=== PATIENT | male | born 1960 | race Caucasian/White ===

== ENCOUNTER 2017-02-06 11:42 | Emergency (ER) | payer OTHER ==
[2017-02-06 12:32] VITALS: O2SAT 95
[2017-02-06] MEDS ORDERED: TYLENOL EXTRA STRENGTH 500 MG PO STA (13:44)
[2017-02-06] MEDS ORDERED: ZOFRAN ODT 4 MG PO ONE (13:45)
--- NOTE | 2017-02-06 13:45 | ERPHSYRPT ---
- History of Present Illness Time Seen by Provider: 02/06/17 13:38 Source: patient Patient Subjective Stated Complaint: pt slipped on newly cleaned floor and fell hitting face on dresser,pt states no loc, but states "i said i saw stars", pt vomited x4 since, Triage Nursing Assessment: pt has abrsions above right eye, walked in, alert, resp easy, pulils equal and reactive Physician History: The patient is a 56-year-old male with family complaining of slipping on a newly cleaned floor and striking his right eyebrow on a table. He did not lose consciousness but he did sees stars. He vomited 4 times shortly thereafter. The event occurred about 3 hours ago. He has pain above his right eye. He denies neck pain. He is on a blood thinner. His past medical history is significant for coronary artery disease, [place], hypertension, and high cholesterol. Occurred: this morning Reason for Fall: slipped, fell from standing pos Injuries/Pain Location: face Loss of Consciousness: no loss of consciousness, dazed Quality: aching Severity of Pain-Max: moderate Severity of Pain-Current: moderate Modifying Factors: Improves With: nothing Associated Symptoms (Fall): vomiting, vision changes Allergies/Adverse Reactions: No Known Drug Allergies Allergy (Verified 02/06/17 12:32) Home Medications: Aspirin EC 325 mg [Ecotrin 325 MG] 325 mg PO DAILY 09/15/15 [History] Carvedilol 3.125 mg [Coreg 3.125 MG] 3.125 mg PO BID 09/15/15 [History] Lisinopril [Zestril] 5 mg PO DAILY 09/15/15 [History] Simvastatin 10 mg PO DAILY 09/15/15 [History] Ranolazine 500 MG [Ranexa 500 MG] 2 tab PO BID 11/29/15 [History] Albuterol Sulfate [Proair Hfa] 1 unit DAILY 02/06/17 [History] Clopidogrel Bisulfate 75 mg [PLAVIX 75 MG Tablet] 75 mg DAILY 02/06/17 [ History] Fluticasone/Vilanterol [Breo Ellipta 200-25 Mcg INH] 1 ea DAILY 02/06/17 [ History] Tiotropium [place] [Spiriva] 1 cap DAILY 02/06/17 [History] Hx Tetanus, Diphtheria Vaccination/Date Given: Yes Hx Influenza Vaccination/Date Given: No Hx Pneumococcal Vaccination/Date Given: No Immunizations Up to Date: Yes - Review of Systems Constitutional: No Fever, No Chills Eyes: No Symptoms Ears, Nose, & Throat: No Symptoms Respiratory: No Cough, No Dyspnea Cardiac: No Chest Pain, No Edema, No Syncope Abdominal/Gastrointestinal: No Abdominal Pain, No Nausea, No Vomiting, No Diarrhea Genitourinary Symptoms: No Dysuria Musculoskeletal: Fall, Injury, No Back Pain, No Neck Pain Skin: No Rash Neurological: Headache Psychological: No Symptoms Endocrine: No Symptoms Hematologic/Lymphatic: No Symptoms Immunological/Allergic: No Symptoms All Other Systems: Reviewed and Negative - Past Medical History Pertinent Past Medical History: Yes Neurological History: TIA ENT History: No Pertinent History Cardiac History: Coronary Artery Disease, High Cholesterol, Hypertension Respiratory History: COPD Endocrine Medical History: No Pertinent History Musculoskeletal History: No Pertinent History GI Medical History: No Pertinent History History: No Pertinent History Psycho-Social History: No Pertinent History Male Reproductive Disorders: No Pertinent History Other Medical History: cath cmpleted by dr. bill at [facility] - Past Surgical History Past Surgical History: No Neuro Surgical History: No Pertinent History Cardiac: Cardiac Catheterization Respiratory: No Pertinent History Gastrointestinal: No Pertinent History Genitourinary: No Pertinent History Musculoskeletal: No Pertinent History Male Surgical History: No Pertinent History - Social History Smoking Status: Current every day smoker How long have you smoked: 13 Exposure to second hand smoke: Yes Alcohol Use: Socially Drug Use: none Patient Lives Alone: No Significant Family History: no pertinent family hx - Nursing Vital Signs Nursing Vital Signs: Initial Vital Signs Temperature 97.9 F 02/06/17 12:28 Pulse Rate 79 02/06/17 12:28 Respiratory Rate 18 02/06/17 12:28 Blood Pressure 170/86 02/06/17 12:28 O2 Sat by Pulse Oximetry 95 02/06/17 12:28 Pain Scale Pain Intensity 8 - [place] Coma Score Best Eye Response ([place]): (4) open spontaneously Best Verbal Response ([place]): (5) oriented Best Motor Response ([place]): (6) obeys commands [place] Total: 15 - Physical Exam General Appearance: no apparent distress, alert Head Injury: contusions, ecchymosis, tenderness (right eye brow) Eye Exam: PERRL/EOMI ENT Exam: airway nml Neck Exam: normal inspection, No tenderness Respiratory/Chest Exam: normal breath sounds, No chest tenderness, No respiratory distress Cardiovascular Exam: normal heart sounds, regular rate/rhythm Gastrointestinal Exam: soft, No tenderness, No distention, No guarding, No ecchymosis Rectal Exam: not done Back Exam: normal inspection, No vertebral tenderness Extremity Exam: normal inspection, normal range of motion, pelvis stable, No deformities Neurologic Exam: alert, oriented x 3, cooperative, sensation nml, No motor deficits Skin Exam: normal color, warm, dry SpO2 Interpretation: normal SpO2: 95 Oxygen Delivery: Room Air - CT Exams Head CT Interpretation: Negative (per Dr Truong) Maxillofacial Bones CT Interpretation: Negative (per Dr Truong) Ordered Tests: Active Orders 24 hr Category Date Time Status FACIAL BONES WO CONTRAST [CT] Stat Exams 02/06/17 13:43 Completed HEAD WITHOUT CONTRAST [CT] Stat Exams 02/06/17 13:43 Completed Medication Summary Discontinued Medications Generic Name Dose Route Start Last Admin Trade Name Tri PRN Reason Stop Dose Admin Acetaminophen 1,000 mg 02/06/17 13:44 02/06/17 14:11 Tylenol Extra Strength 500 Mg PO 02/06/17 13:45 1,000 mg STAT STA Administration Acetaminophen Confirm 02/06/17 13:56 Tylenol Extra Strength 500 Mg Administered 02/06/17 13:57 Dose 1,000 mg .ROUTE .STK-MED ONE Ondansetron HCl 4 mg 02/06/17 13:45 02/06/17 14:12 Zofran Odt 4 Mg PO 02/06/17 13:46 4 mg STAT ONE Administration Ondansetron HCl Confirm 02/06/17 13:57 Zofran Odt 4 Mg Administered 02/06/17 13:58 Dose 4 mg .ROUTE .STK-MED ONE - Progress Progress: improved Counseled pt/family regarding: rad results - Departure Time of Disposition: 14:59 Departure Disposition: Home Clinical Impression: Facial contusion Condition: Stable Critical Care Time: No Referrals: SAMANTHA GROSSMAN [Primary Care Provider] - Additional Instructions: You have a facial contusion as result of the fall. The head CT and the facial bone CT were negative. You were given Tylenol 1000 mg in the ER. Continue to take Tylenol and ibuprofen as needed. Apply ice to the area as needed. Follow- up as needed. Prescriptions: Ondansetron ODT 4 MG [Zofran Odt 4 mg] 1 tab PO Q6H PRN PRN #10 tab.rapdis PRN Reason: Nausea/Vomiting
[2017-02-06] MEDS ORDERED: TYLENOL EXTRA STRENGTH 500 MG ONE (13:56)
[2017-02-06] MEDS ORDERED: ZOFRAN ODT 4 MG ONE (13:57)
[2017-02-06 14:21] VITALS: BP 170/98; PULSE 66
--- NOTE | 2017-02-06 14:37 | XRAY ---
Indication: Right supraorbital injury following fall. Multiple contiguous axial images obtained through the head without contrast. Comparison: July 30, 2015. Stable normal-appearing brain parenchyma, ventricles, and bony calvarium. Visualized paranasal sinuses and mastoid air cells are pneumatized and clear. Impression: Stable normal CT head without contrast exam. CTDI 49.71
--- NOTE | 2017-02-06 14:42 | XRAY ---
Indication: Right supraorbital injury following fall. Multiple contiguous axial images obtained through the facial bones. Sagittal and coronal reformatted images obtained. Comparison: None. Patient is edentulous. No acute fracture, suspicious bony lesions, or radiopaque foreign body. Orbits including rib, kelley, and floors intact. Paranasal sinuses and nasal passages are clear. Moderate nasal septal deviation to the right. Visualized noncontrasted soft tissues unremarkable. Visualized cervical spine intact. CT head reported separately. Impression: CT facial bones negative for acute fracture. Incidental nasal septal deviation. CTDI 59.47
== END 2017-02-06 15:11 | disposition home or self-care (01) ==
LOC: ED 11:42
DX: S00.83XA Contusion of other part of head, initial encounter (principal); W01.190A Fall on same level from slipping, tripping and stumbling with subsequent striking against furniture, initial encounter; Z79.01 Long term (current) use of anticoagulants; I25.10 Atherosclerotic heart disease of native coronary artery without angina pectoris; I25.2 Old myocardial infarction; I10 Essential (primary) hypertension; E78.00 Pure hypercholesterolemia, unspecified
CPT/HCPCS: 70450; 70486; 99283; 99284; Q0162; A9270-GY

== ENCOUNTER 2017-06-24 19:22 | Inpatient (IN) | payer OTHER ==
[2017-06-24] MEDS ORDERED: ROCEPHIN 1 Gm-D5w 50 ml Bag** 1 G/50 ML IVPB IV STA (19:32)
[2017-06-24] MEDS ORDERED: solu-MEDROL 125 MG IV ONE (19:32)
[2017-06-24] MEDS ORDERED: PROVENTIL 2.5 MG/3 ML NEB IH ONE (19:32)
[2017-06-24] MEDS ORDERED: Zithromax 500 MG/ 250 ML NaCl Premix 500 MG/250 ML IVPB IV STA (19:32)
[2017-06-24] MEDS ORDERED: Sodium Chloride 0.9% 1000 ML 1,000 ML IV STA (19:37)
[2017-06-24] MEDS ORDERED: solu-MEDROL 125 MG ONE (19:45)
[2017-06-24] MEDS ORDERED: Zithromax 500 MG/ 250 ML NaCl Premix 500 MG/250 ML IVPB IV ONE (19:45)
[2017-06-24] MEDS ORDERED: Sodium Chloride 0.9% 1000 ML 1,000 ML ONE (19:45)
[2017-06-24] MEDS ORDERED: ROCEPHIN 1 Gm-D5w 50 ml Bag** 1 G/50 ML IVPB IV ONE (19:45)
--- NOTE | 2017-06-24 19:46 | ERPHSYRPT ---
- History of Present Illness Time Seen by Provider: 06/24/17 19:35 Source: patient Exam Limitations: clinical condition Patient Subjective Stated Complaint: Pt states "I am having a hard time breathing and have been for about 3 weeks, it is just getting worse." Triage Nursing Assessment: Pt alert and oriented X 3, skin pwd. Pt ambulates without difficulty, able to speak in clear full sentences. Pt only speakin in one to two word sentences. PT coughing, tachypnic. Physician History: PATIENT WITH A HISTORY OF COPD COMPLAINS OF INCREASING DYSPNEA, DIFFICULTY BREATHING , FEVER AND PRODUCTIVE COUGH FOR 2 WEEKS. HAS NO RELIEF WITH NEBULIZERS AT HOME. Timing/Duration: week(s) Activities at Onset: activity Severity of Dyspnea-Max: severe Severity of Dyspnea-Current: severe Possible Cause: occasional episodes Modifying Factors: Improves With: coughing, exertion Associated Symptoms: cough, productive cough Allergies/Adverse Reactions: No Known Drug Allergies Allergy (Verified 02/06/17 12:32) Home Medications: Aspirin EC 325 mg [Ecotrin 325 MG] 325 mg PO DAILY 09/15/15 [History] Carvedilol 3.125 mg [Coreg 3.125 MG] 3.125 mg PO BID 09/15/15 [History] Lisinopril [Zestril] 5 mg PO DAILY 09/15/15 [History] Simvastatin 10 mg PO DAILY 09/15/15 [History] Ranolazine 500 MG [Ranexa 500 MG] 2 tab PO BID 11/29/15 [History] Albuterol Sulfate [Proair Hfa] 1 unit DAILY 02/06/17 [History] Clopidogrel Bisulfate 75 mg [PLAVIX 75 MG Tablet] 75 mg PO DAILY 02/06/17 [History] Fluticasone/Vilanterol [Breo Ellipta 200-25 Mcg INH] 1 ea IN DAILY 02/06/17 [ History] Tiotropium [place] [Spiriva] 1 cap DAILY 02/06/17 [History] Isosorbide Mononitrate 20 mg PO DAILY 06/24/17 [History] Hx Tetanus, Diphtheria Vaccination/Date Given: Yes Hx Influenza Vaccination/Date Given: No Hx Pneumococcal Vaccination/Date Given: No Immunizations Up to Date: Yes - Review of Systems Constitutional: No Fever, No Chills Eyes: No Symptoms Ears, Nose, & Throat: No Symptoms Respiratory: Cough, Dyspnea on Exertion (MOSES), No Dyspnea Cardiac: No Symptoms, No Chest Pain, No Edema, No Syncope Abdominal/Gastrointestinal: No Symptoms, No Abdominal Pain, No Nausea, No Vomiting, No Diarrhea Genitourinary Symptoms: No Symptoms, No Dysuria Musculoskeletal: No Symptoms, No Back Pain, No Neck Pain Skin: No Rash Neurological: No Dizziness, No Focal Weakness, No Sensory Changes Psychological: No Symptoms Endocrine: No Symptoms All Other Systems: Reviewed and Negative - Past Medical History Pertinent Past Medical History: Yes Neurological History: TIA ENT History: No Pertinent History Cardiac History: Coronary Artery Disease, High Cholesterol, Hypertension Respiratory History: COPD Endocrine Medical History: No Pertinent History Musculoskeletal History: No Pertinent History GI Medical History: No Pertinent History History: No Pertinent History Psycho-Social History: No Pertinent History Male Reproductive Disorders: No Pertinent History Other Medical History: cath cmpleted by dr. bill at [facility] - Past Surgical History Past Surgical History: No Neuro Surgical History: No Pertinent History Cardiac: Cardiac Catheterization Respiratory: No Pertinent History Gastrointestinal: No Pertinent History Genitourinary: No Pertinent History Musculoskeletal: No Pertinent History Male Surgical History: No Pertinent History - Social History Smoking Status: Current every day smoker How long have you smoked: years Exposure to second hand smoke: Yes Alcohol Use: Socially Drug Use: none Patient Lives Alone: No Significant Family History: no pertinent family hx - Nursing Vital Signs Nursing Vital Signs: Initial Vital Signs Temperature 97.5 F 06/24/17 19:26 Pulse Rate 102 H 06/24/17 19:26 Respiratory Rate 24 06/24/17 19:26 Blood Pressure 179/95 06/24/17 19:26 O2 Sat by Pulse Oximetry 94 L 06/24/17 19:26 Pain Scale Pain Intensity 0 - Physical Exam General Appearance: moderate distress, other (NO AUDIBLE WHEEZES ) Eye Exam: PERRL/EOMI Ears, Nose, Throat Exam: hearing grossly normal Neck Exam: normal inspection, supple Respiratory Exam: respiratory distress, diminished breath sounds, accessory muscle use, prolonged expirations Cardiovascular/Chest Exam: normal heart sounds, regular rate/rhythm Abdominal/Gastrointestinal Exam: soft, normal bowel sounds, No tenderness, No distention, No mass Extremity Exam: non-tender, normal range of motion, normal inspection, no calf tenderness, no pedal edema Peripheral Pulses Exam: carotid (R): 2+, carotid (L): 2+, femoral (R): 2+, femoral (L): 2+, dorsalis-pedis (R): 2+, dorsalis-pedis (L): 2+ Neurologic Exam: alert, oriented x 3, cooperative, back tender paper machine II-XII nml as tested, sensation nml, No motor deficits Skin Exam: normal color, warm, No dry SpO2 Interpretation: normal SpO2: 94 Oxygen Delivery: Room Air - Course EKG Interpreted by Me: RATE, Sinus Rhythm, NORMAL AXIS - Radiology Exams Chest X-ray Interpretation: Interpreted by me (COPD, FLAT DIAPHRAMS, HYPERINFLATION) Ordered Tests: Active Orders 24 hr Category Date Time Status EKG-ER Only STAT Care 06/24/17 19:32 Active IV Insertion STAT Care 06/24/17 19:37 Active Oxygen-ED Only NASAL CANNULA 2 lpm Care 06/24/17 19:32 Active CHEST 1 VIEW (PORTABLE) Stat Exams 06/24/17 19:33 Completed BLOOD CULTURE Stat Lab 06/24/17 19:45 Received CBC W DIFF Stat Lab 06/24/17 19:45 Completed CMP Stat Lab 06/24/17 19:45 Completed D-DIMER QUANTITATION Stat Lab 06/24/17 19:45 Completed Lactic Acid Stat Lab 06/24/17 19:32 Completed MAGNESIUM Stat Lab 06/24/17 19:45 Completed PROTIME WITH INR Stat Lab 06/24/17 19:45 Completed TROPONIN Q3H Lab 06/24/17 20:00 Completed TROPONIN Q3H Lab 06/24/17 22:45 Ordered TROPONIN Q3H Lab 06/25/17 01:45 Ordered TROPONIN Q3H Lab 06/25/17 04:45 Ordered TROPONIN Q3H Lab 06/25/17 07:45 Ordered VENOUS BLOOD GAS Stat Lab 06/24/17 19:32 Completed Respiratory Nebulizer STAT RT 06/24/17 19:35 Completed Medication Summary Discontinued Medications Generic Name Dose Route Start Last Admin Trade Name Freq PRN Reason Stop Dose Admin Albuterol Sulfate 10 mg 06/24/17 19:32 06/24/17 19:58 Proventil 2.5 Mg/3 Ml Neb IH 06/24/17 19:33 10 mg STAT ONE Administration Albuterol Sulfate Confirm 06/24/17 19:50 Proventil Solution 2.5 Mg/0.5 Ml Administered 06/24/17 19:51 Dose 10 mg IH .STK-MED ONE Ceftriaxone Sodium/Dextrose 1 g in 50 mls @ 100 mls/hr 06/24/17 19:32 19:51 Rocephin 1 Gm-D5w 50 Ml Bag IV 06/24/17 20:01 100 mls/hr STAT STA Administration Azithromycin 500 mg in 250 mls @ 250 mls/hr 06/24/17 19:32 06/24/17 20:03 Zithromax 500 Mg/ 250 Ml Nacl Premix IV 06/24/17 20:31 250 mls/hr STAT STA Administration Sodium Chloride 1,000 mls @ 999 mls/hr 06/24/17 19:37 06/24/17 19:51 Sodium Chloride 0.9% 1000 Ml IV 06/24/17 20:37 999 mls/hr .Q1H1M STA Administration Azithromycin Confirm 06/24/17 19:45 Zithromax 500 Mg/ 250 Ml Nacl Premix Administered 06/24/17 19:46 Dose 500 mg in 250 mls @ ud IV .STK-MED ONE Sodium Chloride Confirm 06/24/17 19:45 Sodium Chloride 0.9% 1000 Ml Administered 06/24/17 19:46 Dose 1,000 mls @ ud .ROUTE .STK-MED ONE Ceftriaxone Sodium/Dextrose Confirm 06/24/17 19:45 Rocephin 1 Gm-D5w 50 Ml Bag Administered 06/24/17 19:46 Dose 1 g in 50 mls @ ud IV .STK-MED ONE Methylprednisolone Sodium Succinate 125 mg 06/24/17 19:32 06/24/17 19:51 Solu-Medrol 125 Mg IV 06/24/17 19:33 125 mg STAT ONE Administration Methylprednisolone Sodium Succinate Confirm 06/24/17 19:45 Solu-Medrol 125 Mg Administered 06/24/17 19:46 Dose 125 mg .ROUTE .STK-MED ONE Sodium Chloride Confirm 06/24/17 19:50 Sodium Chloride 3 Ml Ud Nebules Administered 06/24/17 19:51 Dose 9 ml IH .STK-MED ONE Lab/Rad Data: Laboratory Result Diagrams 06/24/17 19:45 06/24/17 19:45 Laboratory Results 06/24/17 06/24/17 06/24/17 Range/Units 20:00 19:45 19:45 WBC (4.0-10.5) K/mm3 RBC (4.1-5.6) M/mm3 Hgb (12.5-18.0) gm/dl Hct (42-50) % MCV (78-100) fl MCH (26-32) pg MCHC (32-36) g/dl RDW (11.5-14.0) % Plt Count (150-450) K/mm3 MPV (6-9.5) fl Gran % (36.0-66.0) % Lymphocytes % (24.0-44.0) % Monocytes % (0.0-12.0) % Eosinophils % (0.00-5.0) % Basophils % (0.0-0.4) % Basophils # (0-0.4) INR 1.42 (0.8-3.0) D-Dimer 461.23 (0-500) ng/mL VBG pH (7.32-7.42) VBG pCO2 at Pat Temp (42-55) mm/Hg VBG pO2 at Pat Temp (25-40) mm/Hg VBG HCO3 (22-28) meq/L VBG O2 Sat ([place]) (95-100) VBG Base Excess (-2.0-2.0) VBG Hemoglobin VBG Carboxyhemoglobin (0.0-6.9) % T HGB POC Potassium (3.5-5.1) Sodium 137 (136-145) mEq/L Potassium 3.7 (3.5-5.1) mEq/L Chloride 99 (98-107) mEq/L Carbon Dioxide 27.3 (21-32) mEq/L Anion Gap 14.2 (5-15) MEQ/L BUN 15 (9-20) mg/dL Creatinine 1.20 (0.55-1.30) mg/dl Estimated GFR > 60 ML/MIN Glucose 115 H (70-110) MG/DL Lactic Acid (0.4-2.0) Calcium 8.8 (8.5-10.1) mg/dL Magnesium 1.7 L (1.8-2.4) mg/dL Total Bilirubin 0.50 (0.2-1.0) mg/dL AST 16 (15-37) U/L ALT 14 (12-78) U/L Alkaline Phosphatase 60 (46-116) U/L Troponin I < 0.017 (0.000-0.056) ng/ml Serum Total Protein 7.7 (6.4-8.2) gm/dL Albumin 3.9 (3.4-5.0) g/dL 06/24/17 06/24/17 Range/Units 19:45 19:32 WBC 10.4 (4.0-10.5) K/mm3 RBC 4.57 (4.1-5.6) M/mm3 Hgb 14.8 (12.5-18.0) gm/dl Hct 44.7 (42-50) % MCV 97.8 (78-100) fl MCH 32.4 H (26-32) pg MCHC 33.1 (32-36) g/dl RDW 13.2 (11.5-14.0) % Plt Count 179 (150-450) K/mm3 MPV 10.0 H (6-9.5) fl Gran % 77.8 H (36.0-66.0) % Lymphocytes % 10.5 L (24.0-44.0) % Monocytes % 11.5 (0.0-12.0) % Eosinophils % 0.1 (0.00-5.0) % Basophils % 0.1 (0.0-0.4) % Basophils # 0.01 (0-0.4) INR (0.8-3.0) D-Dimer (0-500) ng/mL VBG pH 7.35 (7.32-7.42) VBG pCO2 at Pat Temp 51 (42-55) mm/Hg VBG pO2 at Pat Temp 23 L (25-40) mm/Hg VBG HCO3 28.2 H (22-28) meq/L VBG O2 Sat (Bruno) 50.1 L (95-100) VBG Base Excess 1.4 (-2.0-2.0) VBG Hemoglobin 16.6 VBG Carboxyhemoglobin 3.6 (0.0-6.9) % T HGB POC Potassium 3.9 (3.5-5.1) Sodium (136-145) mEq/L Potassium (3.5-5.1) mEq/L Chloride (98-107) mEq/L Carbon Dioxide (21-32) mEq/L Anion Gap (5-15) MEQ/L BUN (9-20) mg/dL Creatinine (0.55-1.30) mg/dl Estimated GFR ML/MIN Glucose (70-110) MG/DL Lactic Acid 1.8 (0.4-2.0) Calcium (8.5-10.1) mg/dL Magnesium (1.8-2.4) mg/dL Total Bilirubin (0.2-1.0) mg/dL AST (15-37) U/L ALT (12-78) U/L Alkaline Phosphatase (46-116) U/L Troponin I (0.000-0.056) ng/ml Serum Total Protein (6.4-8.2) gm/dL Albumin (3.4-5.0) g/dL - Progress Progress: improved (DISCUSSED WITH DR MULLEN AT 2100 FOR ADMIT) Progress Note: 06/24/17 21:34 ADMINISTERED CONTINUOUS NEBULIZER ALBUTEROL 10MG OVER 1 HOUR. IV NORMAL SALINE 500ML/HR, SOLUMEDROL 125MG, ZITHROMAX 500MG AND ROCEPHIN 1GM IVBP Blood Culture(s) Obtained: Yes Discussed with : Vkii - Departure Time of Disposition: 21:40 Departure Disposition: In-patient Admission Clinical Impression: ACUTE EXACERBATION COPD Condition: Stable Critical Care Time: No Referrals: SAMANTHA GROSSMAN [Primary Care Provider] -
[2017-06-24] MEDS ORDERED: Sodium Chloride 3 ML UD NEBULES IH ONE (19:50)
[2017-06-24] MEDS ORDERED: PROVENTIL Solution 2.5 MG/0.5 ML IH ONE (19:50)
[2017-06-24 20:07] LABS: BASOPHIL % 0.1 % (0.0-0.4); Basophil (Absolute #) 0.01 (0-0.4); Eosinophil % 0.1 % (0.00-5.0); Eosinophil (Absolute #) 0.01 (0-0.5); Granulocyte Absolute (ANC) 8.09 (1.4-6.9); Granulocytes % 77.8 % (36.0-66.0); Hematocrit 44.7 % (42-50); Hemoglobin 14.8 gm/dl (12.5-18.0); Lymphocyte (Absolute #) 1.09 (1.0-4.6); Lymphocytes % 10.5 % (24.0-44.0); Mean Cell Volume 97.8 fl (78-100); Mean Corpuscular Hemoglobin 32.4 pg (26-32); Mean Corpuscular Hgb Concent. 33.1 g/dl (32-36); Monocyte (Absolute #) 1.19 (0.0-1.3); Monocytes % 11.5 % (0.0-12.0); Platelet Count 179 K/mm3 (150-450); Red Blood Count 4.57 M/mm3 (4.1-5.6); Red Cell Distribution Width 13.2 % (11.5-14.0); White Blood Count 10.4 K/mm3 (4.0-10.5)
[2017-06-24 20:27] LABS: Lactic Acid 1.8 (0.4-2.0); VBG BASE EXCESS 1.4 (-2.0-2.0); VBG CARBOXYHEMOGLOBIN 3.6 % T HGB (0.0-6.9); VBG HCO3- 28.2 meq/L (22-28); VBG HEMOGLOBIN 16.6; VBG O2 SATURATION 50.1 (95-100); VBG POTASSIUM 3.9 (3.5-5.1); VBG pH 7.35 (7.32-7.42)
[2017-06-24 20:42] LABS: INR 1.42 (0.8-3.0)
--- NOTE | 2017-06-24 20:42 | XRAY ---
Indication: Cough and dyspnea. Comparison: May 23, 2017. Portable chest remains hyperinflated and clear with incidental right apical calcified granuloma. Heart is not enlarged. Bony thorax intact again with mild degenerative changes and old right 10th rib fracture. Impression: Stable COPD. No new/acute findings.
[2017-06-24 20:43] LABS: D-DIMER QUANTITATION 461.23 ng/mL (0-500)
[2017-06-24 20:53] LABS: ALBUMIN 3.9 g/dL (3.4-5.0); ALKALINE PHOSPHATASE 60 U/L (46-116); ANION GAP 14.2 MEQ/L (5-15); BLOOD UREA NITROGEN 15 mg/dL (9-20); CHLORIDE 99 mEq/L (98-107); Calcium 8.8 mg/dL (8.5-10.1); Carbon Dioxide 27.3 mEq/L (21-32); EST GLOMERULAR FILTRATION RATE > 60 ML/MIN; Glucose 115 MG/DL (70-110); MAGNESIUM 1.7 mg/dL (1.8-2.4); Potassium 3.7 mEq/L (3.5-5.1); SGOT/AST 16 U/L (15-37); SGPT/ALT 14 U/L (12-78); SODIUM 137 mEq/L (136-145); Total Protein 7.7 gm/dL (6.4-8.2)
[2017-06-24] MEDS ORDERED: TYLENOL 325 MG PO PRN (21:42)
[2017-06-24] MEDS ORDERED: Xopenex 1.25 MG/0.5 ML UD NEBULE IH PRN (21:43)
[2017-06-24] MEDS ORDERED: Nitrostat 0.4 MG Tablet SL PRN (21:45)
[2017-06-24] MEDS ORDERED: Sodium Chloride 0.9% 1000 ML 1,000 ML IV SCH (21:45)
[2017-06-24] MEDS ORDERED: Zofran 4 MG/2 ML VIAL IV PRN (21:46)
[2017-06-24] MEDS: Ranexa 500 MG PO SCH (23:12)
[2017-06-24] MEDS: Coreg 3.125 MG PO SCH (23:13)
[2017-06-24 23:15] LABS: INFLUENZA A NEGATIVE (NEGATIVE); INFLUENZA B NEGATIVE (NEGATIVE)
[2017-06-24 23:16] LABS: RESPIRATORY SYNCTIAL VIRUS POSITIVE (Negative)
[2017-06-25] MEDS: solu-MEDROL 125 MG IV SCH ×4 (00:11→21:29)
[2017-06-25] MEDS: DUONEB 0.5-3 MG/3 ml Neb IH SCH ×7 (02:32→23:11)
[2017-06-25] MEDS: Spiriva 18 Mcg/Cap Inhaler IH SCH (06:45)
[2017-06-25] MEDS ORDERED: Advair Hfa 115/21 Common canister IH SCH (07:00)
[2017-06-25] MEDS: ADVAIR 250-50 DISKUS 14 DOSE IH SCH ×2 (08:30→20:08)
[2017-06-25] MEDS ORDERED: Imdur 30 MG PO SCH (10:00)
[2017-06-25] MEDS ORDERED: FLUCELVAX QUAD 2017-2018 SYR IM ONE (10:00)
[2017-06-25] MEDS ORDERED: Zestril 5 MG PO SCH (10:00)
[2017-06-25] MEDS: Ecotrin 325 MG PO SCH (10:07)
[2017-06-25] MEDS: Coreg 3.125 MG PO SCH ×2 (10:08→21:30)
[2017-06-25] MEDS: PLAVIX 75 MG Tablet PO SCH (10:08)
[2017-06-25] MEDS: Ranexa 500 MG PO SCH ×2 (10:08→21:29)
[2017-06-25] MEDS ORDERED: Sodium Chloride 0.9% 10 ML FLUSH Syringe IV PRN (11:41)
[2017-06-25] MEDS ORDERED: ZOFRAN ODT 4 MG PO PRN (12:31)
[2017-06-25] MEDS ORDERED: Ventolin Hfa MDI IH PRN (12:31)
[2017-06-25] MEDS: Nicoderm CQ 21 MG TOP SCH (12:33)
[2017-06-25] MEDS ORDERED: PROVENTIL COMMON CANISTER IH PRN (12:33)
[2017-06-25] MEDS: Zocor 10MG PO SCH (15:00)
[2017-06-25] MEDS: Sodium Chloride 0.9% 10 ML FLUSH Syringe IV SCH ×2 (15:00→21:47)
[2017-06-25] MEDS: ROCEPHIN 1 Gm-D5w 50 ml Bag** 1 G/50 ML IVPB IV SCH (20:08)
[2017-06-25] MEDS: Zithromax 500 MG/ 250 ML NaCl Premix 500 MG/250 ML IVPB IV SCH (21:29)
[2017-06-25] MEDS: Zestril 5 MG PO SCH (21:30)
[2017-06-26] MEDS: solu-MEDROL 125 MG IV SCH (05:21)
[2017-06-26 05:36] LABS: Granulocyte Absolute (ANC) 11.19 (1.4-6.9); Hematocrit 41.3 % (42-50); Hemoglobin 13.6 gm/dl (12.5-18.0); Mean Cell Volume 97.6 fl (78-100); Mean Corpuscular Hemoglobin 32.2 pg (26-32); Mean Corpuscular Hgb Concent. 32.9 g/dl (32-36); Mean Platelet Volume 10.4 fl (6-9.5); Platelet Count 172 K/mm3 (150-450); Red Blood Count 4.23 M/mm3 (4.1-5.6); Red Cell Distribution Width 13.1 % (11.5-14.0); White Blood Count 12.1 K/mm3 (4.0-10.5)
[2017-06-26] MEDS: Sodium Chloride 0.9% 10 ML FLUSH Syringe IV SCH ×3 (05:37→21:07)
[2017-06-26] MEDS: DUONEB 0.5-3 MG/3 ml Neb IH SCH ×6 (05:38→23:15)
[2017-06-26] MEDS: Spiriva 18 Mcg/Cap Inhaler IH SCH ×2 (05:40→05:41)
[2017-06-26] MEDS: ADVAIR 250-50 DISKUS 14 DOSE IH SCH ×2 (05:40→19:45)
[2017-06-26 05:57] LABS: ANION GAP 13.6 MEQ/L (5-15); BLOOD UREA NITROGEN 19 mg/dL (9-20); CHLORIDE 106 mEq/L (98-107); Carbon Dioxide 25.4 mEq/L (21-32); Creatinine 1 0.98 mg/dl (0.55-1.30); EST GLOMERULAR FILTRATION RATE > 60 ML/MIN; Glucose 130 MG/DL (70-110); Potassium 3.9 mEq/L (3.5-5.1); SODIUM 141 mEq/L (136-145)
[2017-06-26 06:39] LABS: BAND 2 % (0.0-2.0); Lymphocytes 7 % (24-44); Monocyte 3 % (0.0-12.0); Neutrophils 88 % (36.-66.); Total Cells Counted 100
[2017-06-26 06:40] LABS: Platelet Estimate NORMAL (NORMAL)
--- NOTE | 2017-06-26 08:39 | PCM.NOTE ---
Date and Time: 06/26/17837 Subjective Assessment: a little better with the oxygen eating some now still very short of breath with minimal exertion or talking no chest pian no nausea or vomiting. he does not have home oxygen Objective Exam General Appearance: no apparent distress, alert, thin Neurologic Exam: alert, oriented x 3, cooperative, normal mood/affect, nml cerebellar function, sensation nml, No motor deficits Skin Exam: normal color, warm, dry Eye Exam: PERRL, EOMI, eyes nml inspection Ears, Nose, Throat Exam: normal ENT inspection, pharynx normal, moist mucous membranes Neck Exam: normal inspection, non-tender, supple, full range of motion Respiratory Exam: diminished breath sounds, wheezing Cardiovascular Exam: regular rate/rhythm, normal heart sounds Gastrointestinal/Abdomen Exam: soft, No tenderness, No mass Extremity Exam: normal inspection, normal range of motion Back Exam: normal inspection, normal range of motion, No CVA tenderness, No vertebral tenderness Male Genitalia Exam: deferred Rectal Exam: deferred OBJECTIVE DATA Vital Signs: Vital Signs - 24 hr Temp Pulse Resp BP Pulse Ox 06/26/17 05:42 65 24 92 L 06/26/17 04:00 97.1 F 78 20 169/77 95 06/26/17 00:00 97.6 F 61 22 146/76 95 06/25/17 23:12 65 20 93 L 06/25/17 20:00 97.7 F 65 24 139/70 94 L 06/25/17 16:00 22 06/25/17 15:34 98 F 68 22 126/60 91 L 06/25/17 15:00 69 22 91 L 06/25/17 12:00 20 06/25/17 11:16 98 F 84 20 125/59 92 L 06/25/17 11:00 65 20 91 L Oxygen-Last 24 hours O2 Percentage 2 Liters = 28% O2 Percentage 2 Liters = 28% O2 Percentage 2 Liters = 28% Oxygen Flowrate (L/min)-RT 2 Pain Assessment - Last Documented Pain Intensity 0 Pain Scale Used 0-10 Pain Scale Intake and Output: Intake & Output 06/23/17 06/24/1718 06/26/17 11:59 11:59 11:59 11:59 Intake Total 754 1500 Output Total 650 Balance 754 850 Weight 59.9 kg Lab Results: Lab Results-Last 24 Hours 06/25/17 06/26/17 06/26/17 Range/Units 07:45 05:15 05:15 WBC 12.1 H (4.0-10.5) K/mm3 RBC 4.23 (4.1-5.6) M/mm3 Hgb 13.6 (12.5-18.0) gm/dl Hct 41.3 L (42-50) % MCV 97.6 (78-100) fl MCH 32.2 H (26-32) pg MCHC 32.9 (32-36) g/dl RDW 13.1 (11.5-14.0) % Plt Count 172 (150-450) K/mm3 MPV 10.4 H (6-9.5) fl Segmented Neutrophils 88 H (36.-66.) % Band Neutrophils 2 (0.0-2.0) % Lymphocytes (Manual) 7 L (24-44) % Monocytes (Manual) 3 (0.0-12.0) % Differential Comment NORMAL Platelet Estimate NORMAL (NORMAL) Sodium 141 (136-145) mEq/L Potassium 3.9 (3.5-5.1) mEq/L Chloride 106 (98-107) mEq/L Carbon Dioxide 25.4 (21-32) mEq/L Anion Gap 13.6 (5-15) MEQ/L BUN 19 (9-20) mg/dL Creatinine 0.98 (0.55-1.30) mg/dl Estimated GFR > 60 ML/MIN Glucose 130 H (70-110) MG/DL Calcium 9.0 (8.5-10.1) mg/dL Troponin I < 0.017 (0.000-0.056) ng/ml Assessment/Plan (1) COPD exacerbation Current Visit: Yes Status: Acute Assessment & Plan: still significant symptoms will wean the iv steroids a little continue the antibiotics wean O2 as tolerated if tolerating off O2 consider overnight pulse ox study Code(s): J44.1 - CHRONIC OBSTRUCTIVE PULMONARY DISEASE W (ACUTE) EXACERBATION (2) RSV infection Current Visit: Yes Status: Acute Code(s): B97.4 - RESPIRATORY SYNCYTIAL VIRUS CAUSING DISEASES CLASSD ELSWHR (3) Coronary artery disease Current Visit: Yes Status: Acute Code(s): I25.10 - ATHSCL HEART DISEASE OF [place] CORONARY ARTERY W/O ANG PCTRS
[2017-06-26] MEDS: Ecotrin 325 MG PO SCH (09:09)
[2017-06-26] MEDS: monoKET 20 MG PO SCH (09:09)
[2017-06-26] MEDS: Coreg 3.125 MG PO SCH ×2 (09:09→21:07)
[2017-06-26] MEDS: PLAVIX 75 MG Tablet PO SCH (09:09)
[2017-06-26] MEDS: Ranexa 500 MG PO SCH ×2 (09:09→21:07)
[2017-06-26] MEDS: Zestril 5 MG PO SCH ×2 (09:09→21:07)
[2017-06-26] MEDS: Zocor 10MG PO SCH (09:09)
[2017-06-26] MEDS: Nicoderm CQ 21 MG TOP SCH (09:10)
--- NOTE | 2017-06-26 13:05 | HP ---
CHIEF COMPLAINT: Shortness of breath. HISTORY OF PRESENT ILLNESS: The patient is a 57 year-old white male patient with history of chronic obstructive pulmonary disease. He apparently had recent upper respiratory tract infection which was treated with p.o. steroids and antibiotics. He had been seen by Dr. Tse a couple weeks ago. The patient reports that he was in contact with a grandson in school that had also had upper respiratory infection recently. Upon evaluation in the emergency room the patient was found to be positive for respiratory syncytial virus infection. The patient apparently does use nebulizer machine at home. He apparently also has history of coronary artery disease. He is a known smoker. He previously had a transient ischemic attack. PAST MEDICAL/SURGICAL HISTORY: HOME MEDICATIONS: Aspirin, carvedilol, lisinopril, Simvastatin, Lunesta, Albuterol, Plavix, Breo Ellipta and Spiriva. ALLERGIES: NKDA. PHYSICAL EXAMINATION: Revealed a thin, white male patient who appears to be mildly dyspneic. He is wearing oxygen per nasal cannula. HEENT: Normocephalic, atraumatic. Pupils equal round reactive to light. Extraocular movements intact. Oropharynx is pink and moist. NECK: Supple without lymphadenopathy, thyromegaly or JVD. CHEST: Slight wheeze in the posterior upper area and somewhat diminished lung air movement bilaterally. HEART: Regular rate and rhythm without significant murmurs, rubs or gallops. ABDOMEN: Soft, nontender, nondistended without hepatosplenomegaly or masses. EXTREMITIES: Without clubbing, cyanosis or edema. NEUROLOGIC: The patient is alert and oriented x3. LAB DATA AND TESTS: Chest x-ray revealed stable chronic obstructive pulmonary disease with no acute findings. His EKG showed mild sinus bradycardia on telemetry on his 12 lead he is in sinus rhythm with rate of 99 with normal axis, normal R-wave progression across the precordial leads and no acute changes. His troponin was measured at less than 0.017 on four different occasions. His white blood cell count was 10,400, hemoglobin 14.8, PLT 179,000. International normalized ratio 1.42. His sugar is 115, BUN 15, creatinine 1.02. Electrolytes and liver enzymes were normal. Venous blood gas 7.35, pCO2 51. ASSESSMENT: Acute exacerbation of chronic obstructive pulmonary disease. The patient has been admitted for IV steroids, nebulizer treatments, oxygen and empiric IV antibiotic treatments. He will be continued on his usual home medications and monitored for his potential for coronary artery disease complications.
[2017-06-26] MEDS: solu-MEDROL 40 MG IV SCH ×2 (15:08→21:07)
[2017-06-26] MEDS: ROCEPHIN 1 Gm-D5w 50 ml Bag** 1 G/50 ML IVPB IV SCH (20:26)
[2017-06-26] MEDS: Zithromax 500 MG/ 250 ML NaCl Premix 500 MG/250 ML IVPB IV SCH (21:06)
[2017-06-27] MEDS: DUONEB 0.5-3 MG/3 ml Neb IH SCH ×6 (03:36→23:14)
[2017-06-27] MEDS: solu-MEDROL 40 MG IV SCH (05:34)
[2017-06-27] MEDS: Sodium Chloride 0.9% 10 ML FLUSH Syringe IV SCH ×3 (05:34→22:04)
[2017-06-27] MEDS: ADVAIR 250-50 DISKUS 14 DOSE IH SCH ×2 (06:46→19:20)
[2017-06-27] MEDS: Spiriva 18 Mcg/Cap Inhaler IH SCH (06:46)
--- NOTE | 2017-06-27 07:32 | PCM.NOTE ---
Date and Time: 06/27/17730 Subjective Assessment: still very sob with any exertion unable to get up to restroom without oxygen. he has decreased appetite with no vomiting or diarrhea. Objective Exam General Appearance: no apparent distress Neurologic Exam: alert, oriented x 3, cooperative Skin Exam: warm, dry Ears, Nose, Throat Exam: moist mucous membranes Neck Exam: non-tender, supple Respiratory Exam: prolonged expirations, rhonchi, wheezing, other (poor airmovement) Cardiovascular Exam: normal heart sounds, No murmur Gastrointestinal/Abdomen Exam: normal bowel sounds, No tenderness, No distention , No mass Extremity Exam: normal inspection, No pedal edema OBJECTIVE DATA Vital Signs: Vital Signs - 24 hr Temp Pulse Resp BP Pulse Ox 06/27/17 07:24 98 F 83 20 155/71 96 06/27/17 06:53 71 20 96 06/27/17 04:00 97.7 F 68 20 171/82 96 06/27/17 03:37 68 20 96 06/27/17 00:00 97.6 F 64 20 160/78 96 06/26/17 23:16 76 20 96 06/26/17 20:00 97.5 F 80 26 H 170/77 93 L 06/26/17 19:45 72 20 96 06/26/17 16:00 97.9 F 70 20 160/97 95 06/26/17 15:24 60 20 95 06/26/17 12:18 106 H 24 92 L 06/26/17 12:00 97.8 F 68 20 126/67 93 L 06/26/17 08:00 97.6 F 24 145/68 91 L Oxygen-Last 24 hours O2 Percentage 2 Liters = 28% O2 Percentage 2 Liters = 28% O2 Percentage 2 Liters = 28% Oxygen Flowrate (L/min)-RT 2 Oxygen Flowrate (L/min)-RT 2 Oxygen Flowrate (L/min)-RT 2 Pain Assessment - Last Documented Pain Intensity 0 Pain Scale Used 0-10 Pain Scale Intake and Output: Intake & Output 06/24/17 06/25/17 06/26/17 06/27/17 11:59 11:59 11:59 11:59 Intake Total 754 1500 1200 Output Total 650 Balance 742 739 9455 Weight 59.9 kg 60 kg Assessment/Plan (1) COPD exacerbation Current Visit: Yes Status: Acute Assessment & Plan: still requirring O2 for even minimal exertion will wean steroids to po prednison continue antibiotics try to see if he qualifies for home o2 today if not check overnight pulse ox he is currently still very weak and sob hopeful for improvement and home tomorrow Code(s): J44.1 - CHRONIC OBSTRUCTIVE PULMONARY DISEASE W (ACUTE) EXACERBATION (2) RSV infection Current Visit: Yes Status: Acute Code(s): B97.4 - RESPIRATORY SYNCYTIAL VIRUS CAUSING DISEASES CLASSD ELSWHR (3) Coronary artery disease Current Visit: Yes Status: Acute Code(s): I25.10 - ATHSCL HEART DISEASE OF [place] CORONARY ARTERY W/O ANG PCTRS
[2017-06-27] MEDS ORDERED: DELTASONE 20 MG PO SCH (10:00)
[2017-06-27] MEDS: monoKET 20 MG PO SCH (10:31)
[2017-06-27] MEDS: Zestril 10 MG PO SCH ×2 (10:32→22:03)
[2017-06-27] MEDS: Ranexa 500 MG PO SCH ×2 (10:32→22:03)
[2017-06-27] MEDS: Ecotrin 325 MG PO SCH (10:32)
[2017-06-27] MEDS: PLAVIX 75 MG Tablet PO SCH (10:32)
[2017-06-27] MEDS: Coreg 6.25 MG PO SCH ×2 (10:32→22:04)
[2017-06-27] MEDS: Zocor 10MG PO SCH (10:33)
[2017-06-27] MEDS: Nicoderm CQ 21 MG TOP SCH (10:33)
[2017-06-27] MEDS: ROCEPHIN 1 Gm-D5w 50 ml Bag** 1 G/50 ML IVPB IV SCH (20:22)
[2017-06-27] MEDS: Zithromax 500 MG/ 250 ML NaCl Premix 500 MG/250 ML IVPB IV SCH (20:58)
[2017-06-28] MEDS: DUONEB 0.5-3 MG/3 ml Neb IH SCH ×2 (03:17→07:15)
[2017-06-28 07:07] VITALS: BP 188/95; O2SAT 96
[2017-06-28] MEDS: ADVAIR 250-50 DISKUS 14 DOSE IH SCH (07:15)
[2017-06-28] MEDS: Spiriva 18 Mcg/Cap Inhaler IH SCH (07:15)
[2017-06-28 07:22] VITALS: PULSE 58
--- NOTE | 2017-06-28 07:50 | PCM.DS ---
Discharge Summary Date of Admission: 06/24/17 22:18 Admitting Physician: SAMANTHA GROSSMAN Primary Care Provider: SAMANTHA GROSSMAN Allergies Allergies No Known Drug Allergies Allergy (Verified 02/06/17 12:32) Hospital Summary - Vitals & Intake/Output Vital Signs: Vital Signs Temperature 98.5 F 06/28/17 07:07 Pulse Rate 58 L 06/28/17 07:16 Respiratory Rate 20 06/28/17 07:16 Blood Pressure 188/95 06/28/17 07:07 O2 Sat by Pulse Oximetry 96 06/28/17 07:16 Oxygen-Last Documented O2 Percentage 2 Liters = 28% Intake & Output: Intake & Output 06/25/17 06/26/17 06/27/17 06/28/17 11:59 11:59 11:59 11:59 Intake Total 754 1500 1200 1660 Output Total 650 Balance 795 225 5252 1660 Weight 59.9 kg 60 kg 58 kg - Lab Result Diagrams: 06/26/17 05:15 06/26/17 05:15 - Procedures and Test Procedures and Tests throughout Hospitalization: Therapy Orders & Screens 06/24/17 21:38 Oxygen NASAL CANNULA 2 lpm Comment: Diagnosis: Shortness of Breath Respiratory Therapy Consult ROUTINE Comment: Reason For Exam: Diagnosis: Shortness of Breath 06/25/17 03:00 neb [Respiratory Nebulizer] Q4H Comment: DUO Q4 Diagnosis: EXACERBATION COPD 06/25/17 07:00 Respiratory MDI BID Comment: CHINEDU 115/21 Diagnosis: EXACERBATION COPD Respiratory MDI UD Comment: LISS ORELLANA Diagnosis: EXACERBATION COPD 06/27/17 07:31 Qualify for Home Oxygen ROUTINE Comment: Diagnosis: EXACERBATION COPD Final Diagnosis/Problem List - Final Discharge Diagnosis/Problem (1) COPD exacerbation Current Visit: Yes Status: Acute (2) RSV infection Current Visit: Yes Status: Acute (3) Coronary artery disease Current Visit: Yes Status: Acute - Discharge Discharge Date: 06/28/17 Disposition: Home, Self-Care Condition: Stable Prescriptions: New Prednisone 20 mg [Deltasone 20 mg] 60 mg PO DAILY #14 tablet Lisinopril 10 mg [Zestril 10 MG] 10 mg PO BID #60 tablet Continue Carvedilol 3.125 mg [Coreg 3.125 MG] 3.125 mg PO BID Simvastatin 10 mg PO DAILY Aspirin EC 325 mg [Ecotrin 325 MG] 325 mg PO DAILY Nitroglycerin 0.4 mg Tablet [Nitrostat 0.4 MG Tablet] 0.4 mg SL UD #0 bottle Ranolazine 500 MG [Ranexa 500 MG] 2 tab PO BID Tiotropium [place] [Spiriva] 1 cap DAILY Clopidogrel Bisulfate 75 mg [PLAVIX 75 MG Tablet] 75 mg PO DAILY Albuterol Sulfate [Proair Hfa] 1 unit DAILY PRN PRN Reason: Shortness Of Breath/Wheezing Fluticasone/Vilanterol [Breo Ellipta 200-25 Mcg INH] 1 ea IN HS Ondansetron ODT 4 MG [Zofran Odt 4 mg] 1 tab PO Q6H PRN PRN #10 tab.rapdis PRN Reason: Nausea/Vomiting Isosorbide Mononitrate 20 mg PO DAILY Discontinued Lisinopril [Zestril] 5 mg PO BID Follow up with: SAMANTHA GROSSMAN [Primary Care Provider] - MINNA IBANEZ [ACTIVE STAFF] - 1 Week Forms: Work/School Release Form
== END 2017-06-28 09:20 | disposition home or self-care (01) | DRG 192 ==
LOC: ED 19:22 → MED SURG 22:18
PROVIDERS: ADMIT Family Medicine; ATTEND Family Medicine
DX: J44.1 Chronic obstructive pulmonary disease with (acute) exacerbation (principal); B97.4 Respiratory syncytial virus as the cause of diseases classified elsewhere; I25.10 Atherosclerotic heart disease of native coronary artery without angina pectoris; R00.1 Bradycardia, unspecified; Z72.0 Tobacco use; Z86.73 Personal history of transient ischemic attack (TIA), and cerebral infarction without residual deficits; Z79.899 Other long term (current) drug therapy
CPT/HCPCS: 36000; 36415; 71045; 80048; 80053; 82805; 83605; 83735; 84484; 85025; 85379; 85610; 87040; 87631; 93005; 94150; 94640; 94760; 94762; 96360; 96361; 96374; 99285; G0008; J0456; J0696; J2920; J2930; 90682; A9270-GY

== ENCOUNTER 2019-04-15 07:48 | Observation (INO) | payer MEDICARE, OTHER ==
[2019-04-15] MEDS ORDERED: Sodium Chloride 0.9% 1000 ML 1,000 ML IV STA (08:06)
[2019-04-15] MEDS ORDERED: solu-MEDROL 125 MG IV ONE (08:06)
[2019-04-15] MEDS ORDERED: ROCEPHIN 1 Gm-D5w 50 ml Bag** 1 G/50 ML IVPB IV STA (08:06)
[2019-04-15] MEDS ORDERED: DUONEB 0.5-3 MG/3 ml Neb IH ONE ×2 (08:06→08:38)
[2019-04-15] MEDS ORDERED: ROCEPHIN 1 Gm-D5w 50 ml Bag** 1 G/50 ML IVPB IV ONE (08:16)
[2019-04-15] MEDS ORDERED: solu-MEDROL 125 MG ONE (08:16)
[2019-04-15] MEDS ORDERED: Sodium Chloride 0.9% 1000 ML 1,000 ML ONE (08:16)
[2019-04-15 08:45] LABS: Hematocrit 43.9 % (42-50); Hemoglobin 14.6 gm/dl (12.5-18.0); Mean Cell Volume 99.8 fl (78-100); Mean Corpuscular Hemoglobin 33.2 pg (26-32); Mean Corpuscular Hgb Concent. 33.3 g/dl (32-36); Mean Platelet Volume 10.2 fl (6-9.5); Platelet Count 184 K/mm3 (150-450); Red Cell Distribution Width 12.4 % (11.5-14.0); White Blood Count 8.9 K/mm3 (4.0-10.5)
[2019-04-15 08:50] LABS: INR 1.33 (0.8-3.0); PROTIME 15.1 SECONDS (8.83-12.87)
[2019-04-15 08:52] LABS: PTT 31.6 SECONDS (24.1-36.1)
[2019-04-15 09:03] LABS: ALBUMIN 4.3 g/dL (3.5-5.0); ALKALINE PHOSPHATASE 60 U/L (38-126); ANION GAP 14.5 MEQ/L (5-15); BLOOD UREA NITROGEN 17 mg/dL (9-20); CHLORIDE 102 mmol/L (98-107); Calcium 9.3 mg/dL (8.4-10.2); Carbon Dioxide 27 mmol/L (22-30); Creatinine 1 0.75 mg/dL (0.66-1.25); Eosinophil 1 % (0.00-3.0); Glucose 96 mg/dL (74-106); Lymphocytes 12 % (24-44); MAGNESIUM 1.8 mg/dL (1.6-2.3); Monocyte 8 % (0.0-12.0); NT PRO BNP 275 pg/mL (0-900); Neutrophils 79 % (36.-66.); Platelet Estimate NORMAL (NORMAL); Potassium 4.3 mmol/L (3.5-5.1); SGOT/AST 29 U/L (17-59); SGPT/ALT 22 U/L (0-50); SODIUM 140 mmol/L (137-145); Total Cells Counted 100
[2019-04-15 09:16] LABS: INFLUENZA A NEGATIVE (NEGATIVE); INFLUENZA B NEGATIVE (NEGATIVE); RESPIRATORY SYNCTIAL VIRUS NEGATIVE (Negative)
--- NOTE | 2019-04-15 09:24 | XRAY ---
Indication: Short of breath, cough, and vomiting. Comparison: June 24, 2017. Portable chest again demonstrates COPD and incidental calcified granulomas. No focal infiltrate, consolidation, or large effusion. Heart is not enlarged. Bony thorax intact again with mild degenerative changes. Impression: Nonacute chest with chronic features.
--- NOTE | 2019-04-15 10:09 | XRAY ---
Indication: Fever, short of breath, and elevated d-dimer. Multiple contiguous axial images obtained through the chest using 80 cc Isovue 370 contrast and PE protocol. Comparison: None There is good opacification of the pulmonary arteries to include the lobar and segmental branches. No filling defect or pulmonary embolus. Heart is not enlarged. Aorta is minimally arteriosclerotic without aneurysm/dissection. 2.5 x 2.4 similar right suprahilar prominent lymph node. Lungs demonstrate moderate pulmonary emphysema and bilateral upper lobe discoid fibrosis/scarring. Right upper lobe demonstrates a 1 x 2 cm lateral and 1.0 x 1.7 cm medial noncalcified masslike opacities contiguous with reported fibrosis/scarring. Minimal [id number]-like opacities in both lower lobes right greater than left favoring pneumonitis. No effusion. Bony thorax demonstrates minimal degenerative changes throughout the spine. Limited upper abdomen demonstrates multiple small/tiny hepatic and renal cysts and left adrenal gland adenoma unchanged with respect to CT abdomen/pelvis October 30, 2014. Impression: 1. Negative pulmonary embolus. Diffuse pulmonary emphysema. 2. Minimal bilateral lower lobe [id number]-like opacities favoring pneumonitis. 3. Right upper lobe masslike opacities possibly focal fibrosis/scarring given continuity with adjacent discoid fibrosis/scarring. Pulmonary masses not completely excluded. Comparison studies would be of benefit if performed elsewhere. Alternatively PET/CT may yield further information. 4. Indeterminate right suprahilar lymphadenopathy. 5. Stable hepatic/renal cysts and left adrenal adenoma. CTDI 11.84
--- NOTE | 2019-04-15 10:53 | ERPHSYRPT ---
- History of Present Illness Time Seen by Provider: 04/15/19 09:20 Source: patient, family Exam Limitations: no limitations Patient Subjective Stated Complaint: SOB Triage Nursing Assessment: Patient ambulated into ED and transferred self to bed. Patient A+O X3. Patient's skin pink, warm and dry. Patient complains of sob , cough and fever for 7 days. Patient states it's hard for him to take a deep breath. Accessory muscle use noted. Patient's lungs diminshed throughout. Patient denies pain or discomfort. Physician History: PATIENT IS A LONG-STANDING copd PATIENT WHO USES NEBULIZERS AT HOME he has had increasing shortness of breath for one week he started with shortness of breath developed fever chills and sweats. He's been quite tight in the chest he has been hospitalized here in the past for COPD exacerbations and RSV. He is a former patient of Dr. Guan Timing/Duration: day(s) (7), worse Activities at Onset: none Severity of Dyspnea-Max: severe Severity of Dyspnea-Current: severe Possible Cause: frequent episodes Modifying Factors: Improves With: nothing Associated Symptoms: cough, chest pain/discomfort, wheezing Allergies/Adverse Reactions: No Known Drug Allergies Allergy (Verified 04/15/19 07:58) Home Medications: Aspirin EC 325 mg [Ecotrin 325 MG] 325 mg PO DAILY 09/15/15 [History] Carvedilol 3.125 mg [Coreg 3.125 MG] 3.125 mg PO BID 09/15/15 [History] Ranolazine 500 MG [Ranexa 500 MG] 2 tab PO BID 11/29/15 [History] Albuterol Sulfate [Proair Hfa] 1 unit IH DAILY PRN 02/06/17 [History] Fluticasone/Vilanterol [Breo Ellipta 200-25 Mcg INH] 1 ea IN HS 02/06/17 [ History] Tiotropium [place] [Spiriva] 1 cap IH DAILY 02/06/17 [History] Hx Tetanus, Diphtheria Vaccination/Date Given: Yes Hx Influenza Vaccination/Date Given: No Hx Pneumococcal Vaccination/Date Given: No Immunizations Up to Date: Yes - Review of Systems Constitutional: Fever, Chills, Night Sweats Eyes: No Symptoms Ears, Nose, & Throat: No Symptoms Respiratory: Cough, Dyspnea, Wheezing Cardiac: No Chest Pain, No Edema, No Syncope Abdominal/Gastrointestinal: No Abdominal Pain, No Nausea, No Vomiting, No Diarrhea Genitourinary Symptoms: No Dysuria Musculoskeletal: No Back Pain, No Neck Pain Skin: No Rash Neurological: No Dizziness, No Focal Weakness, No Sensory Changes Psychological: No Symptoms Endocrine: No Symptoms All Other Systems: Reviewed and Negative - Past Medical History Pertinent Past Medical History: Yes Neurological History: TIA ENT History: No Pertinent History Cardiac History: Coronary Artery Disease, High Cholesterol, Hypertension Respiratory History: COPD Endocrine Medical History: No Pertinent History Musculoskeletal History: No Pertinent History GI Medical History: No Pertinent History History: No Pertinent History Psycho-Social History: No Pertinent History Male Reproductive Disorders: No Pertinent History Other Medical History: cath cmpleted by dr. bill at [facility] - Past Surgical History Past Surgical History: Yes Neuro Surgical History: No Pertinent History Cardiac: Cardiac Catheterization Respiratory: No Pertinent History Gastrointestinal: No Pertinent History Genitourinary: No Pertinent History Musculoskeletal: No Pertinent History Male Surgical History: No Pertinent History Other Surgical History: DR HERNANDEZ DID HEART CATH IN 2014 - Social History Smoking Status: Current every day smoker How long have you smoked: years Exposure to second hand smoke: No Alcohol Use: Socially Drug Use: none Patient Lives Alone: No Significant Family History: no pertinent family hx - Nursing Vital Signs Nursing Vital Signs: Initial Vital Signs Temperature 98.2 F 04/15/19 08:01 Pulse Rate 102 H 04/15/19 08:01 Respiratory Rate 18 04/15/19 08:01 Blood Pressure 185/103 04/15/19 08:01 O2 Sat by Pulse Oximetry 94 L 04/15/19 08:01 Pain Scale Pain Intensity 0 - Physical Exam General Appearance: moderate distress, alert Eye Exam: PERRL/EOMI Neck Exam: normal inspection, supple Respiratory Exam: respiratory distress, diminished breath sounds, crackles/rales , rhonchi, wheezing Cardiovascular/Chest Exam: normal heart sounds, regular rate/rhythm Abdominal/Gastrointestinal Exam: soft, No tenderness, No distention, No mass Extremity Exam: non-tender, normal range of motion, normal inspection, no calf tenderness, no pedal edema Peripheral Pulses Exam: carotid (R): 2+, carotid (L): 2+ Neurologic Exam: alert, oriented x 3, cooperative, 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 nml as tested, sensation nml, No motor deficits Skin Exam: normal color, warm, No dry Lymphatic Exam: No adenopathy SpO2 Interpretation: normal SpO2: 91 - Course EKG Interpreted by Me: RATE (64), Sinus Rhythm, NORMAL AXIS, Other (poor R wave progression) - Radiology Exams Chest X-ray Interpretation: Discussed w/ radiologist - CT Exams Chest CT Interpretation: Discussed w/radiologist Ordered Tests: Active Orders 24 hr Category Date Time Status Roll Off Driver STAT Care 04/15/19 08:10 Active EKG-ER Only STAT Care 04/15/19 08:06 Active Pulse Oximetry (ED) STAT Care 04/15/19 08:06 Active CHEST 1 VIEW (PORTABLE) Stat Exams 04/15/19 08:10 Completed CHEST WITH CONTRAST [CT] Stat Exams 04/15/19 09:00 Completed BLOOD CULTURE Stat Lab 04/15/19 08:10 Received CBC W DIFF Stat Lab 04/15/19 08:10 Completed CMP Stat Lab 04/15/19 08:10 Completed D-DIMER QUANTITATION Stat Lab 04/15/19 08:10 Completed Lactic Acid Stat Lab 04/15/19 08:10 Completed MAGNESIUM Stat Lab 04/15/19 08:10 Completed Manual Differential NC Stat Lab 04/15/19 08:10 Completed NT PRO BNP Stat Lab 04/15/19 08:10 Completed PROTIME WITH INR Stat Lab 04/15/19 08:10 Completed PTT Stat Lab 04/15/19 08:10 Completed TROPONIN Q3H Lab 04/15/19 08:15 Completed TROPONIN Q3H Lab 04/15/19 11:15 Ordered TROPONIN Q3H Lab 04/15/19 14:15 Ordered TROPONIN Q3H Lab 04/15/19 17:15 Ordered TROPONIN Q3H Lab 04/15/19 20:15 Ordered UA W/RFX UR CULTURE Stat Lab 04/15/19 08:10 Uncollected Peak Expiratory Flow Rate ONCE RT 04/15/19 08:48 Active Respiratory Therapy Assessment DAILY RT 04/16/19 08:42 Active Medication Summary Discontinued Medications Generic Name Dose Route Start Last Admin Trade Name Freq PRN Reason Stop Dose Admin Albuterol/Ipratropium 3 ml 04/15/19 08:06 04/15/19 08:42 Duoneb 0.5-3 Mg/3 Ml Neb IH 04/15/19 08:07 3 ml STAT ONE Administration Albuterol/Ipratropium Confirm 04/15/19 08:38 Duoneb 0.5-3 Mg/3 Ml Neb Administered 04/15/19 08:39 Dose 3 ml IH .STK-MED ONE Ceftriaxone Sodium/Dextrose 1 g in 50 mls @ 100 mls/hr 04/15/19 08:06 09:45 Rocephin 1 Gm-D5w 50 Ml Bag IV 04/15/19 08:35 Infused STAT STA Infusion Sodium Chloride 1,000 mls @ 999 mls/hr 04/15/19 08:06 04/15/19 09:59 Sodium Chloride 0.9% 1000 Ml IV 04/15/19 09:06 Infused .Q1H1M STA Infusion Sodium Chloride Confirm 04/15/19 08:16 Sodium Chloride 0.9% 1000 Ml Administered 04/15/19 08:17 Dose 1,000 mls @ ud .ROUTE .STK-MED ONE Ceftriaxone Sodium/Dextrose Confirm 04/15/19 08:16 Rocephin 1 Gm-D5w 50 Ml Bag Administered 04/15/19 08:17 Dose 1 g in 50 mls @ ud IV .STK-MED ONE Methylprednisolone Sodium Succinate 125 mg 04/15/19 08:06 04/15/19 08:19 Solu-Medrol 125 Mg IV 04/15/19 08:07 125 mg STAT ONE Administration Methylprednisolone Sodium Succinate Confirm 04/15/19 08:16 Solu-Medrol 125 Mg Administered 04/15/19 08:17 Dose 125 mg .ROUTE .STK-MED ONE Lab/Rad Data: Laboratory Result Diagrams 04/15/19 08:10 04/15/19 08:10 Laboratory Results 04/15/19 04/15/19 04/15/19 Range/Units 08:40 08:15 08:10 WBC (4.0-10.5) K/mm3 RBC (4.1-5.6) M/mm3 Hgb (12.5-18.0) gm/dl Hct (42-50) % MCV (78-100) fl MCH (26-32) pg MCHC (32-36) g/dl RDW (11.5-14.0) % Plt Count (150-450) K/mm3 MPV (6-9.5) fl Segmented Neutrophils (36.-66.) % Lymphocytes (Manual) (24-44) % Monocytes (Manual) (0.0-12.0) % Eosinophils (Manual) (0.00-3.0) % Platelet Estimate (NORMAL) RBC Morphology PT 15.1 H (8.83-12.87) SECONDS INR 1.33 (0.8-3.0) APTT 31.6 (24.1-36.1) SECONDS D-Dimer 725 H* (215-500) ng/mL Sodium (137-145) mmol/L Potassium (3.5-5.1) mmol/L Chloride (98-107) mmol/L Carbon Dioxide (22-30) mmol/L Anion Gap (5-15) MEQ/L BUN (9-20) mg/dL Creatinine (0.66-1.25) mg/dL Estimated GFR ML/MIN Glucose (74-106) mg/dL Lactic Acid (0.4-2.0) Calcium (8.4-10.2) mg/dL Magnesium (1.6-2.3) mg/dL Total Bilirubin (0.2-1.3) mg/dL AST (17-59) U/L ALT (0-50) U/L Alkaline Phosphatase (38-126) U/L Troponin I < 0.012 (0.000-0.034) ng/mL NT-Pro-B Natriuret Pep (0-900) pg/mL Serum Total Protein (6.3-8.2) g/dL Albumin (3.5-5.0) g/dL Influenza Type A Ag NEGATIVE (NEGATIVE) Influenza Type B Ag NEGATIVE (NEGATIVE) RSV (PCR) NEGATIVE (Negative) 04/15/19 04/15/19 04/15/19 Range/Units 08:10 08:10 08:10 WBC 8.9 (4.0-10.5) K/mm3 RBC 4.40 (4.1-5.6) M/mm3 Hgb 14.6 (12.5-18.0) gm/dl Hct 43.9 (42-50) % MCV 99.8 (78-100) fl MCH 33.2 H (26-32) pg MCHC 33.3 (32-36) g/dl RDW 12.4 (11.5-14.0) % Plt Count 184 (150-450) K/mm3 MPV 10.2 H (6-9.5) fl Segmented Neutrophils 79 H (36.-66.) % Lymphocytes (Manual) 12 L (24-44) % Monocytes (Manual) 8 (0.0-12.0) % Eosinophils (Manual) 1 (0.00-3.0) % Platelet Estimate NORMAL (NORMAL) RBC Morphology NORMAL PT (8.83-12.87) SECONDS INR (0.8-3.0) APTT (24.1-36.1) SECONDS D-Dimer (215-500) ng/mL Sodium 140 (137-145) mmol/L Potassium 4.3 (3.5-5.1) mmol/L Chloride 102 (98-107) mmol/L Carbon Dioxide 27 (22-30) mmol/L Anion Gap 14.5 (5-15) MEQ/L BUN 17 (9-20) mg/dL Creatinine 0.75 (0.66-1.25) mg/dL Estimated GFR > 60.0 ML/MIN Glucose 96 (74-106) mg/dL Lactic Acid 1.3 (0.4-2.0) Calcium 9.3 (8.4-10.2) mg/dL Magnesium 1.8 (1.6-2.3) mg/dL Total Bilirubin 0.80 (0.2-1.3) mg/dL AST 29 (17-59) U/L ALT 22 (0-50) U/L Alkaline Phosphatase 60 (38-126) U/L Troponin I (0.000-0.034) ng/mL NT-Pro-B Natriuret Pep 275 (0-900) pg/mL Serum Total Protein 8.0 (6.3-8.2) g/dL Albumin 4.3 (3.5-5.0) g/dL Influenza Type A Ag (NEGATIVE) Influenza Type B Ag (NEGATIVE) RSV (PCR) (Negative) - Progress Progress: improved Air Movement: fair Blood Culture(s) Obtained: Yes Antibiotics given: Yes Discussed with : Mary Will see patient in: hospital (observation) - Departure Departure Disposition: Observation Clinical Impression: COPD exacerbation Condition: Fair Critical Care Time: No Referrals: DOCTOR,NO FAMILY [Primary Care Provider] - Instructions: Chronic Obstructive Pulmonary Disease
[2019-04-15 12:09] LABS: Appearance CLEAR (CLEAR); Bilirubin NEGATIVE (NEGATIVE); Blood NEGATIVE Ery/ul (0-5); Glucose NEGATIVE (NEGATIVE); Ketones TRACE (NEGATIVE); Leukocyte Esterase NEGATIVE (NEGATIVE); Nitrite NEGATIVE (NEGATIVE); Protein,Urine Dip NEGATIVE (Negative); Specific Gravity 1.034 (1.005-1.025); Urobilinogen NEGATIVE mg/dL (0-1)
[2019-04-15 12:52] LABS: Epithelial Cells OCCASIONAL /HPF (FEW); WBC NONE SEEN /HPF (0-5)
[2019-04-15] MEDS ORDERED: Spiriva 18 Mcg/Cap Inhaler IH ONE (13:42)
[2019-04-15] MEDS: PROVENTIL 2.5 MG/3 ML NEB IH SCH ×4 (13:55→23:20)
[2019-04-15] MEDS: Spiriva 18 Mcg/Cap Inhaler IH SCH (13:55)
[2019-04-15] MEDS: Ecotrin 325 MG PO SCH (17:48)
[2019-04-15] MEDS: Advair Hfa 115/21 Common canister IH SCH (18:56)
[2019-04-15] MEDS: Coreg 3.125 MG PO SCH (21:11)
[2019-04-15] MEDS: Ranexa 500 MG PO SCH (21:11)
[2019-04-15] MEDS: Zestril 10 MG PO SCH (21:11)
[2019-04-15] MEDS ORDERED: Ranexa 500 MG PO SCH (22:00)
[2019-04-16] MEDS: PROVENTIL 2.5 MG/3 ML NEB IH SCH ×5 (03:06→19:59)
[2019-04-16 05:17] LABS: Hematocrit 37.8 % (42-50); Hemoglobin 12.8 gm/dl (12.5-18.0); Mean Cell Volume 99.2 fl (78-100); Mean Corpuscular Hemoglobin 33.6 pg (26-32); Mean Corpuscular Hgb Concent. 33.9 g/dl (32-36); Platelet Count 195 K/mm3 (150-450); Red Blood Count 3.81 M/mm3 (4.1-5.6); Red Cell Distribution Width 12.2 % (11.5-14.0); White Blood Count 9.3 K/mm3 (4.0-10.5)
[2019-04-16 05:32] LABS: ALBUMIN 3.4 g/dL (3.5-5.0); ALKALINE PHOSPHATASE 48 U/L (38-126); ANION GAP 12.1 MEQ/L (5-15); BLOOD UREA NITROGEN 19 mg/dL (9-20); CHLORIDE 108 mmol/L (98-107); Calcium 8.6 mg/dL (8.4-10.2); Carbon Dioxide 24 mmol/L (22-30); Creatinine 1 0.66 mg/dL (0.66-1.25); Glucose 115 mg/dL (74-106); Potassium 4.6 mmol/L (3.5-5.1); SGOT/AST 27 U/L (17-59); SGPT/ALT 24 U/L (0-50); SODIUM 140 mmol/L (137-145); Total Protein 6.7 g/dL (6.3-8.2)
[2019-04-16] MEDS: Advair Hfa 115/21 Common canister IH SCH ×2 (07:17→20:00)
[2019-04-16] MEDS: Spiriva 18 Mcg/Cap Inhaler IH SCH ×2 (07:18→20:03)
[2019-04-16] MEDS: ROCEPHIN 1 Gm-D5w 50 ml Bag** 1 G/50 ML IVPB IV SCH (09:19)
[2019-04-16] MEDS: Ranexa 500 MG PO SCH ×2 (09:22→20:59)
[2019-04-16] MEDS: Zestril 10 MG PO SCH ×2 (09:22→21:00)
[2019-04-16] MEDS: DELTASONE 20 MG PO SCH (09:22)
[2019-04-16] MEDS: Ecotrin 325 MG PO SCH (09:22)
[2019-04-16] MEDS: Coreg 3.125 MG PO SCH ×2 (09:23→21:00)
[2019-04-16] MEDS ORDERED: FLUZONE QUAD 2019-2020 SYRINGE IM ONE (10:00)
[2019-04-16] MEDS ORDERED: PROVENTIL 2.5 MG/3 ML NEB IH PRN (21:05)
[2019-04-17 04:41] LABS: Hematocrit 38.1 % (42-50); Hemoglobin 12.8 gm/dl (12.5-18.0); Mean Corpuscular Hemoglobin 33.6 pg (26-32); Mean Corpuscular Hgb Concent. 33.6 g/dl (32-36); Mean Platelet Volume 9.7 fl (6-9.5); Platelet Count 205 K/mm3 (150-450); Red Blood Count 3.81 M/mm3 (4.1-5.6); Red Cell Distribution Width 12.3 % (11.5-14.0); White Blood Count 8.1 K/mm3 (4.0-10.5)
[2019-04-17 04:54] LABS: ANION GAP 10.5 MEQ/L (5-15); BLOOD UREA NITROGEN 18 mg/dL (9-20); CHLORIDE 108 mmol/L (98-107); Calcium 8.4 mg/dL (8.4-10.2); Carbon Dioxide 24 mmol/L (22-30); Creatinine 1 0.69 mg/dL (0.66-1.25); Glucose 95 mg/dL (74-106); Potassium 4.2 mmol/L (3.5-5.1); SODIUM 139 mmol/L (137-145)
[2019-04-17] MEDS: PROVENTIL 2.5 MG/3 ML NEB IH SCH ×3 (05:25→14:18)
[2019-04-17] MEDS: Advair Hfa 115/21 Common canister IH SCH (05:27)
[2019-04-17] MEDS: Spiriva 18 Mcg/Cap Inhaler IH SCH (05:28)
--- NOTE | 2019-04-17 08:40 | XRAY ---
Indication: COPD exacerbation. Comparison: April 15, 2019. Portable chest remains clear again with COPD and a few calcified granulomas. Heart and mediastinal structures within normal limits. No new/acute findings.
[2019-04-17] MEDS: ROCEPHIN 1 Gm-D5w 50 ml Bag** 1 G/50 ML IVPB IV SCH (10:47)
[2019-04-17] MEDS: Ranexa 500 MG PO SCH (10:47)
[2019-04-17] MEDS: Zestril 10 MG PO SCH (10:48)
[2019-04-17] MEDS: Coreg 3.125 MG PO SCH (10:48)
[2019-04-17] MEDS: DELTASONE 20 MG PO SCH (10:48)
[2019-04-17] MEDS: Ecotrin 325 MG PO SCH (10:48)
[2019-04-17 12:12] VITALS: BP 159/73
[2019-04-17 14:20] VITALS: PULSE 55; O2SAT 94
== END 2019-04-17 16:19 | disposition home or self-care (01) ==
LOC: ED 07:48 → MED SURG 11:31
PROVIDERS: ADMIT Family Medicine; ATTEND Family Medicine
DX: J44.1 Chronic obstructive pulmonary disease with (acute) exacerbation (principal); I10 Essential (primary) hypertension; I25.10 Atherosclerotic heart disease of native coronary artery without angina pectoris; E78.00 Pure hypercholesterolemia, unspecified; Z79.899 Other long term (current) drug therapy; R06.02 Shortness of breath
CPT/HCPCS: 36000; 36415; 71045; 71260; 80048; 80053; 81001; 83605; 83735; 83880; 84484; 85025; 85027; 85379; 85610; 85730; 87040; 87631; 93005; 93041; 94150; 94640; 94760; 96360; 96365; 96374; 99285; G0008; G0378; 90686; J0696; J2930; J7609; A9270-GY

== ENCOUNTER 2021-08-15 18:02 | Emergency (ER) | payer MEDICARE ==
[2021-08-15 18:17] VITALS: BP 145/86; PULSE 84; O2SAT 98
--- NOTE | 2021-08-15 18:50 | ERPHSYRPT ---
- History of Present Illness Time Seen by Provider: 08/15/21 18:25 Source: patient Exam Limitations: no limitations Patient Subjective Stated Complaint: C/o high blood pressure 178/108 and had a headache- took 2 lisinopril today but has not been taking other home pills reg ularly. Took cardivol, aspirin as well before came in. States he was stumbling and got light headed after taking medicaions. States he became incontinent. States BP was 105/67 before coming in and no longer has headache. Triage Nursing Assessment: Patient to ED for high/low blood pressure. VS WNL at this time. Alert and oriented x 3. No complaints of headache at this time. Physician History: 61 years old male with a history of CAD, tobacco abuse, COPD, hypertension not taking any medication for quite some time checked his blood pressure this afternoon as he was having mild headache and it was 178/108. Took his lisinopril 10 mg x 2, Coreg and Ranexa almost 2 hours ago and after eating supper he got up and felt dizzy/lightheaded. Rechecked his blood pressure it was 105 systolic. He was going to the bathroom, got dizzy and could not make it. Denies any chest pain palpitations or shortness of breath during the episode. He reports his symptoms improved on the way to the ER and currently asymptomatic. His pressure is in 140s currently. Patient does not want any thing to be done not even EKG and wants to leave. Timing/Duration: today, sudden, improved Severity: moderate Associated Symptoms: headaches, No nausea, No vomiting, No abdominal pain, No shortness of breath, No chest pain, No loss of appetite, No malaise, No syncope, No seizure, No weakness Allergies/Adverse Reactions: No Known Drug Allergies Allergy (Verified 08/15/21 18:16) Home Medications: Aspirin EC 325 mg [Ecotrin 325 MG] 325 mg PO DAILY 09/15/15 [History] Carvedilol 3.125 mg [Coreg 3.125 MG] 3.125 mg PO BID 09/15/15 [History] Ranolazine 500 MG [Ranexa 500 MG] 1,000 mg PO BID 11/29/15 [History] Albuterol Sulfate [Proair Hfa] 1 unit IH DAILY PRN 02/06/17 [History] Fluticasone/Vilanterol [Breo Ellipta 200-25 Mcg INH] 1 ea IN HS PRN 02/06/17 [History] Tiotropium [place] [Spiriva] 1 cap IH DAILY 02/06/17 [History] Hx Tetanus, Diphtheria Vaccination/Date Given: Yes Hx Influenza Vaccination/Date Given: No Hx Pneumococcal Vaccination/Date Given: No Immunizations Up to Date: Yes Travel Risk - International Travel Have you traveled outside of the country in past 3 weeks: No - Coronavirus Screening Are you exhibiting any of the following symptoms?: No - Vaccine Status Have you recieved a Covid-19 vaccination: Yes [employer]: Moderna - Vaccination Dates Date of 2cond Vaccination (if applicable): 02/12/2021 - Review of Systems Constitutional: No Symptoms Eyes: No Symptoms Ears, Nose, & Throat: No Symptoms Respiratory: No Symptoms Cardiac: No Symptoms Abdominal/Gastrointestinal: No Symptoms Genitourinary Symptoms: Urgency Musculoskeletal: No Symptoms Neurological: Dizziness, Headache Psychological: No Symptoms Endocrine: No Symptoms Hematologic/Lymphatic: No Symptoms Immunological/Allergic: No Symptoms - Past Medical History Pertinent Past Medical History: Yes Neurological History: TIA ENT History: No Pertinent History Cardiac History: Angina, Coronary Artery Disease, High Cholesterol, Hypertension, Myocardial Infarction ([place]) Respiratory History: COPD, Emphysema Endocrine Medical History: No Pertinent History Musculoskeletal History: No Pertinent History GI Medical History: No Pertinent History History: No Pertinent History Psycho-Social History: No Pertinent History Male Reproductive Disorders: No Pertinent History Other Medical History: heart cath in 2015 - Past Surgical History Past Surgical History: Yes Neuro Surgical History: No Pertinent History Cardiac: Cardiac Catheterization Respiratory: No Pertinent History Gastrointestinal: No Pertinent History Genitourinary: No Pertinent History Musculoskeletal: No Pertinent History Male Surgical History: No Pertinent History Other Surgical History: DR HERNANDEZ DID HEART CATH IN 2015 - Social History Smoking Status: Current every day smoker How long have you smoked: 40 years Exposure to second hand smoke: No Alcohol Use: Socially Drug Use: none Patient Lives Alone: No Significant Family History: no pertinent family hx - Nursing Vital Signs Nursing Vital Signs: Initial Vital Signs Temperature 98.6 F 08/15/21 18:08 Pulse Rate 84 08/15/21 18:08 Respiratory Rate 34 H 08/15/21 18:08 Blood Pressure 145/86 08/15/21 18:08 O2 Sat by Pulse Oximetry 98 08/15/21 18:08 Pain Scale Pain Intensity 20 - Physical Exam General Appearance: no apparent distress, alert Eye Exam: PERRL/EOMI, eyes nml inspection Ears, Nose, Throat Exam: normal ENT inspection, TMs normal, pharynx normal, moist mucous membranes Neck Exam: normal inspection, non-tender, supple, full range of motion Respiratory Exam: normal breath sounds, lungs clear Cardiovascular Exam: regular rate/rhythm, normal heart sounds Gastrointestinal/Abdomen Exam: soft, normal bowel sounds, No tenderness Back Exam: normal inspection, normal range of motion Extremity Exam: normal inspection, normal range of motion Neurologic Exam: alert, oriented x 3, cooperative, 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 Offered work-up to rule out cardio neurogenic cause of his dizziness but he refused. Patient is not confused and altered at all. Patient states "I am feeling fine and I do not need any thing". Discussed with patient about risk of leaving without full work-up and including but not limited to delaying the diagnosis, stroke, hypertensive emergency, ACS/arrhythmia/stroke including but he still wants to leave. patient signed AMA paper removal walked out of the ER without getting paperwork for discharge. He is advised to continue taking the routine dose recommended by his doctor for hypertension, keep a log and follow-up with primary care. He agrees with it. Counseled pt/family regarding: diagnosis, need for follow-up - Departure Departure Disposition: AMA Clinical Impression: Uncontrolled hypertension, Dizziness Condition: Stable Critical Care Time: No Referrals: DOCTOR,NO FAMILY [Primary Care Provider] - Follow up/PCP as directed MORGAN MULLEN [ACTIVE STAFF] - Follow up/PCP as directed ()
== END 2021-08-15 18:49 | disposition left against medical advice (07) ==
LOC: ED 18:02
DX: I10 Essential (primary) hypertension (principal); R42 Dizziness and giddiness; I25.10 Atherosclerotic heart disease of native coronary artery without angina pectoris; E78.5 Hyperlipidemia, unspecified; J43.9 Emphysema, unspecified; Z72.0 Tobacco use; Z79.899 Other long term (current) drug therapy
CPT/HCPCS: 99283

== ENCOUNTER 2023-03-05 08:35 | Observation (INO) | payer MEDICARE ==
[2023-03-05] MEDS ORDERED: solu-MEDROL 125 MG, Sterile H2O 10 ml 2 ML IV ONE ×2 (08:48)
[2023-03-05] MEDS ORDERED: DUONEB 0.5-3 MG/3 ml Neb IH ONE (08:48)
[2023-03-05] MEDS ORDERED: Sodium Chloride 0.9% 1000 ML 1,000 ML IV STA (08:48)
[2023-03-05] MEDS ORDERED: ROCEPHIN 1 Gm-D5w 50 ml Bag** 1 G/50 ML IVPB IV STA (08:48)
[2023-03-05] MEDS ORDERED: Zithromax 500 MG/ 250 ML NaCl Premix 500 MG/250 ML IVPB IV STA (08:48)
--- NOTE | 2023-03-05 09:01 | ERPHSYRPT ---
- History of Present Illness Time Seen by Provider: 03/05/23 08:55 Source: patient, family Exam Limitations: no limitations Physician History: Patient is a 62-year-old white male with longstanding COPD who presents with a complaint of cough and shortness of breath for 2 days. His temperature has not been checked at home but he has been having chills and sweats and body aches. His cough is nonproductive he has been using increased amounts of albuterol at home from his 's supply. Even though he has hypertension and other health problems she is on no medications and says that he cannot swallow pills.He has been especially short of breath with exertion. Timing/Duration: day(s) (2) Cough Quality/Degree: dry cough Possible Cause: occasional episodes Modifying Factors: Improves With: albuterol inhaler, coughing, exertion Associated Symptoms: chills, cough, muscle aches, shortness of breath, wheezing Allergies/Adverse Reactions: No Known Drug Allergies Allergy (Verified 08/15/21 18:16) Home Medications: No Reportable Medications [No Reported Medications] 03/05/23 [History] Hx Tetanus, Diphtheria Vaccination/Date Given: Yes Hx Influenza Vaccination/Date Given: No Hx Pneumococcal Vaccination/Date Given: No Travel Risk - Vaccine Status Have you recieved a 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-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 - Vaccination Dates Date of 2cond Vaccination (if applicable): 02/12/2021 - Review of Systems Constitutional: Chills, Malaise, No Fever Eyes: No Symptoms Ears, Nose, & Throat: No Symptoms Respiratory: Cough, Dyspnea, Wheezing Cardiac: No Chest Pain, No Edema, No Syncope Abdominal/Gastrointestinal: No Abdominal Pain, No Nausea, No Vomiting, No Diarrhea Genitourinary Symptoms: No Dysuria Musculoskeletal: No Back Pain, No Neck Pain Skin: No Rash Neurological: No Dizziness, No Focal Weakness, No Sensory Changes Psychological: No Symptoms Endocrine: No Symptoms All Other Systems: Reviewed and Negative - Past Medical History Pertinent Past Medical History: Yes Neurological History: TIA ENT History: No Pertinent History Cardiac History: Angina, Coronary Artery Disease, High Cholesterol, Hypertension, Myocardial Infarction ([place]) Respiratory History: COPD, Emphysema Endocrine Medical History: No Pertinent History Musculoskeletal History: No Pertinent History GI Medical History: No Pertinent History History: No Pertinent History Psycho-Social History: No Pertinent History Male Reproductive Disorders: No Pertinent History Other Medical History: heart cath in 2015 - Past Surgical History Past Surgical History: Yes Neuro Surgical History: No Pertinent History Cardiac: Cardiac Catheterization Respiratory: No Pertinent History Gastrointestinal: No Pertinent History Genitourinary: No Pertinent History Musculoskeletal: No Pertinent History Male Surgical History: No Pertinent History Other Surgical History: DR HERNANDEZ DID HEART CATH IN 2015 - Social History Smoking Status: Current every day smoker How long have you smoked: 40 years Exposure to second hand smoke: No Alcohol Use: Socially Drug Use: none Patient Lives Alone: No Significant Family History: no pertinent family hx - Nursing Vital Signs Nursing Vital Signs: Initial Vital Signs Temperature 98.0 F 03/05/23 08:44 Pulse Rate 99 H 03/05/23 08:44 Respiratory Rate 25 H 03/05/23 08:44 Blood Pressure 203/130 03/05/23 08:44 O2 Sat by Pulse Oximetry 93 L 03/05/23 08:44 Pain Scale Pain Intensity 0 - Physical Exam General Appearance: no apparent distress, mild distress, alert Eye Exam: PERRL/EOMI, eyes nml inspection Ears, Nose, Throat Exam: normal ENT inspection, TMs normal, pharynx normal, moist mucous membranes Neck Exam: normal inspection, non-tender, supple, full range of motion Respiratory Exam: respiratory distress (Mild), airway intact, diminished breath sounds, crackles/rales, wheezing Cardiovascular Exam: regular rate/rhythm, normal heart sounds Gastrointestinal/Abdomen Exam: soft, No tenderness Back Exam: normal inspection, No CVA tenderness, No vertebral tenderness Extremity Exam: normal inspection, normal range of motion Neurologic Exam: alert, oriented x 3, cooperative, normal mood/affect, sensation nml, No motor deficits Skin Exam: normal color, warm, dry, No rash Lymphatic Exam: No adenopathy - Course Nursing assessment & vital signs reviewed: Yes EKG Interpreted by Me: RATE (74), NORMAL AXIS, NORMAL INTERVALS, Non-specific ST Changes, Other (Some slight ST elevation in the anterior lead v3 nad v, no reciprocal changes) Rhythm Strip: Rate (EKG #2 showed sinus rhythm rate of 95 probable left ventricular hypertrophy and prolonged QT interval no mention of ST segment elevation which was questionable and EKG #1.) - Radiology Exams Chest X-ray Interpretation: Reviewed by me, Negative - CT Exams Chest CT Interpretation: Tele-radiologist Report Ordered Tests: Active Orders 24 hr Category Date Time Status EKG-ER Only STAT Care 03/05/23 08:48 Active IV Insertion STAT Care 03/05/23 08:48 Active CHEST 1 VIEW (PORTABLE) Stat Exams 03/05/23 09:06 Taken CHEST WITH CONTRAST [CT] Stat Exams 03/05/23 10:47 Completed BLOOD CULTURE Stat Lab 03/05/23 09:11 Received CBC W DIFF Stat Lab 03/05/23 09:05 Completed CMP Stat Lab 03/05/23 09:05 Completed D-DIMER QUANTITATIVE Stat Lab 03/05/23 09:05 Completed Lactic Acid Stat Lab 03/05/23 09:05 Completed MAGNESIUM Stat Lab 03/05/23 09:05 Completed NT PRO BNPII Stat Lab 03/05/23 09:05 Completed PROTIME WITH INR Stat Lab 03/05/23 09:05 Completed PTT Stat Lab 03/05/23 09:05 Completed TROPONIN Q4H Lab 03/05/23 09:05 Completed TROPONIN Q4H Lab 03/05/23 11:00 Completed TROPONIN Q4H Lab 03/05/23 17:00 Ordered Respiratory Nebulizer STAT RT 03/05/23 09:10 Active Respiratory Therapy Assessment DAILY RT 03/05/23 09:26 Active Medication Summary Generic Name Dose Route Start Last Admin Trade Name Freq PRN Reason Stop Dose Admin Hydralazine HCl 10 mg 03/05/23 08:54 03/05/23 10:43 Hydralazine Hcl 20 Mg/Ml Vial IV 04/04/23 08:53 10 mg [id number] PRN Administration HYPERTENSION Discontinued Medications Generic Name Dose Route Start Last Admin Trade Name Freq PRN Reason Stop Dose Admin Albuterol/Ipratropium 3 ml 03/05/23 08:48 03/05/23 09:06 Ipratropium/Albuterol Sulfate 3 Ml Ampul.Neb IH 03/05/23 08:49 3 ml STAT ONE Administration Methylprednisolone Sodium 0 mg 03/05/23 08:48 03/05/23 09:08 Succinate 125 mg/ Sterile IV 03/05/23 08:49 125 mg Water 2 ml STAT ONE Administration Furosemide 20 mg 03/05/23 10:39 03/05/23 10:43 Furosemide 20 Mg/Vial IV 03/05/23 10:40 20 mg ONCE STA Administration Furosemide Confirm 03/05/23 10:42 Furosemide 20 Mg/Vial Administered 03/05/23 10:43 Dose 20 mg .ROUTE .STK-MED ONE Sodium Chloride 1,000 mls @ 999 mls/hr 03/05/23 08:48 03/05/23 11:24 Sodium Chloride 0.9% 1000 Ml IV 03/05/23 09:48 Infused .Q1H1M STA Infusion Azithromycin 500 mg in 250 mls @ 250 mls/hr 03/05/23 08:48 03/05/23 11:24 Zithromax 500 Mg/ 250 Ml Nacl Premix IV 03/05/23 09:47 Infused STAT STA Infusion Ceftriaxone Sodium/Dextrose 1 g in 50 mls @ 100 mls/hr 03/05/23 08:48 03/05/23 11:24 Rocephin 1 Gm-D5w 50 Ml Bag IV 03/05/23 09:17 Infused STAT STA Infusion Azithromycin Confirm 03/05/23 09:03 Zithromax 500 Mg/ 250 Ml Nacl Premix Administered 03/05/23 09:04 Dose 500 mg in 250 mls @ ud IV .STK-MED ONE Sodium Chloride Confirm 03/05/23 09:03 Sodium Chloride 0.9% 1000 Ml Administered 03/05/23 09:04 Dose 1,000 mls @ ud .ROUTE .STK-MED ONE Ceftriaxone Sodium/Dextrose Confirm 03/05/23 09:03 Rocephin 1 Gm-D5w 50 Ml Bag Administered 03/05/23 09:04 Dose 1 g in 50 mls @ ud IV .STK-MED ONE Methylprednisolone Sodium Succinate Confirm 03/05/23 09:03 Methylprednis Sod Succ 125 Mg/2 Ml Vial Administered 03/05/23 09:04 Dose 125 mg .ROUTE .STK-MED ONE Sterile Water Confirm 03/05/23 09:03 Water For Injection,Sterile 10 Ml Vial Administered 03/05/23 09:04 Dose 10 ml IJ .STK-MED ONE Lab/Rad Data: Laboratory Result Diagrams 03/05/23 09:05 03/05/23 09:05 Laboratory Results 03/05/23 03/05/23 03/05/23 Range/Units 11:00 09:05 09:05 WBC (4.0-10.5) x10^3/uL RBC (4.1-5.6) x10^6/uL Hgb (12.5-18.0) g/dL Hct (42-50) % MCV (78-100) fL MCH (26-32) pg MCHC (32-36) g/dL RDW (11.5-14.0) % Plt Count (150-450) x10^3/uL MPV (7.5-11.0) fL Gran % (36.0-66.0) % Immature Gran % (Auto) (0.00-0.4) % Nucleat RBC Rel Count (0.00-0.1) % Eos # (Auto) (0-0.5) x10^3/uL Immature Gran # (Auto) (0.00-0.03) x10^3u/L Absolute Lymphs (auto) (1.0-4.6) x10^3/uL Absolute Monos (auto) (0.0-1.3) x10^3/uL Absolute Nucleated RBC (0.00-0.01) x10^3u/L Lymphocytes % (24.0-44.0) % Monocytes % (0.0-12.0) % Eosinophils % (0.00-5.0) % Basophils % (0.0-0.4) % Absolute Granulocytes (1.4-6.9) x10^3/uL Basophils # (0-0.4) x10^3/uL PT (9.4-12.5) SECONDS INR (0.8-3.0) APTT (25.1-36.5) SECONDS D-Dimer (0.0-0.50) mg/L Sodium (137-145) mmol/L Potassium (3.5-5.1) mmol/L Chloride (98-107) mmol/L Carbon Dioxide (22-30) mmol/L Anion Gap (5-15) MEQ/L BUN (9-20) mg/dL Creatinine (0.66-1.25) mg/dL Estimated GFR ML/MIN Glucose (74-106) mg/dL Lactic Acid (0.4-2.0) Calcium (8.4-10.2) mg/dL Magnesium (1.6-2.3) mg/dL Total Bilirubin (0.2-1.3) mg/dL AST (17-59) U/L ALT (0-50) U/L Alkaline Phosphatase (38-126) U/L Troponin I 0.032 (0.000-0.034) ng/mL NT-Pro-B Natriuret Pep 3280 (<300) pg/mL Serum Total Protein (6.3-8.2) g/dL Albumin (3.5-5.0) g/dL Influenza Type A Ag NEGATIVE (NEGATIVE) Influenza Type B Ag NEGATIVE (NEGATIVE) RSV (PCR) NEGATIVE (NEGATIVE) SARS-CoV-2 (PCR) NEGATIVE (NEGATIVE) 03/05/23 03/05/23 03/05/23 Range/Units 09:05 09:05 09:05 WBC (4.0-10.5) x10^3/uL RBC (4.1-5.6) x10^6/uL Hgb (12.5-18.0) g/dL Hct (42-50) % MCV (78-100) fL MCH (26-32) pg MCHC (32-36) g/dL RDW (11.5-14.0) % Plt Count (150-450) x10^3/uL MPV (7.5-11.0) fL Gran % (36.0-66.0) % Immature Gran % (Auto) (0.00-0.4) % Nucleat RBC Rel Count (0.00-0.1) % Eos # (Auto) (0-0.5) x10^3/uL Immature Gran # (Auto) (0.00-0.03) x10^3u/L Absolute Lymphs (auto) (1.0-4.6) x10^3/uL Absolute Monos (auto) (0.0-1.3) x10^3/uL Absolute Nucleated RBC (0.00-0.01) x10^3u/L Lymphocytes % (24.0-44.0) % Monocytes % (0.0-12.0) % Eosinophils % (0.00-5.0) % Basophils % (0.0-0.4) % Absolute Granulocytes (1.4-6.9) x10^3/uL Basophils # (0-0.4) x10^3/uL PT 11.9 (9.4-12.5) SECONDS INR 1.10 (0.8-3.0) APTT 29.3 (25.1-36.5) SECONDS D-Dimer 0.54 H (0.0-0.50) mg/L Sodium 131 L (137-145) mmol/L Potassium 4.1 (3.5-5.1) mmol/L Chloride 98 (98-107) mmol/L Carbon Dioxide 28 (22-30) mmol/L Anion Gap 9.3 (5-15) MEQ/L BUN 13 (9-20) mg/dL Creatinine 0.78 (0.66-1.25) mg/dL Estimated GFR > 60.0 ML/MIN Glucose 102 (74-106) mg/dL Lactic Acid (0.4-2.0) Calcium 9.1 (8.4-10.2) mg/dL Magnesium 1.7 (1.6-2.3) mg/dL Total Bilirubin 0.60 (0.2-1.3) mg/dL AST 35 (17-59) U/L ALT 24 (0-50) U/L Alkaline Phosphatase 69 (38-126) U/L Troponin I 0.038 H* (0.000-0.034) ng/mL NT-Pro-B Natriuret Pep (<300) pg/mL Serum Total Protein 7.3 (6.3-8.2) g/dL Albumin 4.4 (3.5-5.0) g/dL Influenza Type A Ag (NEGATIVE) Influenza Type B Ag (NEGATIVE) RSV (PCR) (NEGATIVE) SARS-CoV-2 (PCR) (NEGATIVE) 03/05/23 03/05/23 Range/Units 09:05 09:05 WBC 4.9 (4.0-10.5) x10^3/uL RBC 4.62 (4.1-5.6) x10^6/uL Hgb 15.6 (12.5-18.0) g/dL Hct 45.4 (42-50) % MCV 98.3 (78-100) fL MCH 33.8 H (26-32) pg MCHC 34.4 (32-36) g/dL RDW 11.9 (11.5-14.0) % Plt Count 176 (150-450) x10^3/uL MPV 9.1 (7.5-11.0) fL Gran % 57.4 (36.0-66.0) % Immature Gran % (Auto) 0.4 (0.00-0.4) % Nucleat RBC Rel Count 0.0 (0.00-0.1) % Eos # (Auto) 0 (0-0.5) x10^3/uL Immature Gran # (Auto) 0.02 (0.00-0.03) x10^3u/L Absolute Lymphs (auto) 1.05 (1.0-4.6) x10^3/uL Absolute Monos (auto) 0.98 (0.0-1.3) x10^3/uL Absolute Nucleated RBC 0.00 (0.00-0.01) x10^3u/L Lymphocytes % 21.6 L (24.0-44.0) % Monocytes % 20.2 H (0.0-12.0) % Eosinophils % 0.0 (0.00-5.0) % Basophils % 0.4 (0.0-0.4) % Absolute Granulocytes 2.79 (1.4-6.9) x10^3/uL Basophils # 0.02 (0-0.4) x10^3/uL PT (9.4-12.5) SECONDS INR (0.8-3.0) APTT (25.1-36.5) SECONDS D-Dimer (0.0-0.50) mg/L Sodium (137-145) mmol/L Potassium (3.5-5.1) mmol/L Chloride (98-107) mmol/L Carbon Dioxide (22-30) mmol/L Anion Gap (5-15) MEQ/L BUN (9-20) mg/dL Creatinine (0.66-1.25) mg/dL Estimated GFR ML/MIN Glucose (74-106) mg/dL Lactic Acid 1.7 (0.4-2.0) Calcium (8.4-10.2) mg/dL Magnesium (1.6-2.3) mg/dL Total Bilirubin (0.2-1.3) mg/dL AST (17-59) U/L ALT (0-50) U/L Alkaline Phosphatase (38-126) U/L Troponin I (0.000-0.034) ng/mL NT-Pro-B Natriuret Pep (<300) pg/mL Serum Total Protein (6.3-8.2) g/dL Albumin (3.5-5.0) g/dL Influenza Type A Ag (NEGATIVE) Influenza Type B Ag (NEGATIVE) RSV (PCR) (NEGATIVE) SARS-CoV-2 (PCR) (NEGATIVE) - Progress Progress: re-examined Air Movement: fair Blood Culture(s) Obtained: Yes Antibiotics given: Yes Discussed with Dr.: Other (Dr Saavedra) Will see patient in: hospital (observation) Counseled pt/family regarding: lab results, rad results Medical Desision Making - Discussion of managment Care discussed with:: hospitalist (Dr. Saavedra) Reviewed:: Test results Agreed on:: Treatment plan, decision to admit Will see patient: in hospital - Diagnostic Testing Diagnostic test were ordered, analyzed, and reviewed by me: Yes Radiological Interpretation: Interpreted by me, Reviewed by me - Risk of complications The pt has a high risk of morbidity or mortality based on: Decision regarding hospitilization or escalation of hosp level of care - Departure Departure Disposition: Observation Clinical Impression: COPD exacerbation, Uncontrolled hypertension, SOB (shortness of breath), CHF (congestive heart failure) Condition: Fair Critical Care Time: No Referrals: DOCTOR,NO FAMILY [Primary Care Provider] - Follow up/PCP as directed Instructions: Chronic Obstructive Pulmonary Disease, Heart Failure
[2023-03-05] MEDS ORDERED: Sodium Chloride 0.9% 1000 ML 1,000 ML ONE (09:03)
[2023-03-05] MEDS ORDERED: solu-MEDROL ONE (09:03)
[2023-03-05] MEDS ORDERED: Sterile H2O 10 ml IJ ONE (09:03)
[2023-03-05] MEDS ORDERED: Zithromax 500 MG/ 250 ML NaCl Premix 500 MG/250 ML IVPB IV ONE (09:03)
[2023-03-05] MEDS ORDERED: ROCEPHIN 1 Gm-D5w 50 ml Bag** 1 G/50 ML IVPB IV ONE (09:03)
[2023-03-05] MEDS: APRESOLINE 20 MG/ML INJ IV PRN ×2 (09:09→10:43)
[2023-03-05 09:16] LABS: Absolute Neutrophil Ct (ANC) 2.79 x10^3/uL (1.4-6.9); BASOPHIL % 0.4 % (0.0-0.4); Basophil (Absolute #) 0.02 x10^3/uL (0-0.4); Eosinophil (Absolute #) 0 x10^3/uL (0-0.5); Hematocrit 45.4 % (42-50); Hemoglobin 15.6 g/dL (12.5-18.0); IMMATURE GRAN # 0.02 x10^3u/L (0.00-0.03); IMMATURE GRAN % 0.4 % (0.00-0.4); Lymphocyte (Absolute #) 1.05 x10^3/uL (1.0-4.6); Lymphocytes % 21.6 % (24.0-44.0); Mean Cell Volume 98.3 fL (78-100); Mean Corpuscular Hemoglobin 33.8 pg (26-32); Mean Corpuscular Hgb Concent. 34.4 g/dL (32-36); Mean Platelet Volume 9.1 fL (7.5-11.0); Monocyte (Absolute #) 0.98 x10^3/uL (0.0-1.3); Monocytes % 20.2 % (0.0-12.0); Neutrophil % 57.4 % (36.0-66.0); Platelet Count 176 x10^3/uL (150-450); Red Blood Count 4.62 x10^6/uL (4.1-5.6); Red Cell Distribution Width 11.9 % (11.5-14.0); White Blood Count 4.9 x10^3/uL (4.0-10.5)
[2023-03-05 09:31] LABS: ALBUMIN 4.4 g/dL (3.5-5.0); ALKALINE PHOSPHATASE 69 U/L (38-126); ANION GAP 9.3 MEQ/L (5-15); BLOOD UREA NITROGEN 13 mg/dL (9-20); CHLORIDE 98 mmol/L (98-107); Calcium 9.1 mg/dL (8.4-10.2); Carbon Dioxide 28 mmol/L (22-30); Creatinine 1 0.78 mg/dL (0.66-1.25); EST GLOMERULAR FILTRATION RATE > 60.0 ML/MIN; Glucose 102 mg/dL (74-106); MAGNESIUM 1.7 mg/dL (1.6-2.3); Potassium 4.1 mmol/L (3.5-5.1); SGOT/AST 35 U/L (17-59); SGPT/ALT 24 U/L (0-50); SODIUM 131 mmol/L (137-145); Total Protein 7.3 g/dL (6.3-8.2)
[2023-03-05 09:51] LABS: D-DIMER QUANTITATIVE 0.54 mg/L (0.0-0.50); INR 1.1 (0.8-3.0); PROTIME 11.9 SECONDS (9.4-12.5); PTT 29.3 SECONDS (25.1-36.5)
[2023-03-05 09:55] LABS: INFLUENZA A NEGATIVE (NEGATIVE); INFLUENZA B NEGATIVE (NEGATIVE); RESPIRATORY SYNCTIAL VIRUS NEGATIVE (NEGATIVE); SARS-CoV-2 Xpert Express NEGATIVE (NEGATIVE)
[2023-03-05] MEDS ORDERED: Lasix 20 MG/2 ML IV STA (10:39)
[2023-03-05] MEDS ORDERED: Lasix 20 MG/2 ML ONE (10:42)
--- NOTE | 2023-03-05 12:00 | XRAY ---
CLINICAL HISTORY:soa, elevated d dimer COMPARISON:CT dated 04/15/2019. TECHNIQUE:Contiguous axial CT images of the pulmonary angiography were acquired with the administration of intravenous contrast. Coronal and sagittal reconstructions were obtained. FINDINGS: No evidence of a filling defect is seen in the pulmonary trunk or either pulmonary artery to suggest pulmonary embolism. Significant centriacinar and paraseptal emphysematous changes seen in both lungs predominantly in both upper and mid lobes. Multiple large bullae seen in both lungs. Thick atelectatic bands seen in both upper lobes. No evidence of definite soft tissue density nodule or consolidation seen in either lung. No free or encysted pleural effusion. Heart size is normal, and there is no pericardial effusion. No pathologically enlarged mediastinal, hilar or axillary lymph node identified. There is no definite mass lesion in the chest wall. Multiple hypodense areas of variable size seen scattered in both lobes of the visualized liver, a few showing peripheral post contrast enhancement, would recommend dedicated CT scan abdomen with contrast triphasic protocol for further evaluation. Few tiny non-obstructing calculi seen in left kidney. Vascular calcification seen. Left adrenal hypodense nodule is noted measuring 2 x 1.5 cm. On appropriate bone window images, mild degenerative changes are seen in the visualized spine. IMPRESSION: 1. No evidence of a filling defect seen in the pulmonary trunk or either pulmonary artery to suggest pulmonary embolism. 2. Significant bilateral centriacinar and paraseptal emphysematous changes. 3. No evidence of definite soft tissue density nodule or consolidation seen in either lung. 4. Multiple hypodense areas of variable size seen scattered in both lobes of the visualized liver, a few showing peripheral post contrast enhancement, would recommend dedicated CT scan abdomen with contrast triphasic protocol for further evaluation. 5. Left adrenal nodule. 6. Non-obstructing left renal calculi. 7. Findings have been stable since the last study. Electronically Signed by: Farhan Cornejo MD. (03/05/2023 10:58:57 [employer])
--- NOTE | 2023-03-05 13:02 | PCM.HP ---
History of Present Illness - Chief Complaint Chief Complaint: COPD exacerbation Date: 03/05/23 History of Present Illness: is a 62 year old male with PMHx of TIA, angina, CAD, hyperlipidemia, HTN, ME, COPD, and emphysema. He is a daily smoker and has smoked for over 40 years. He came into he ER today complaining of cough and shortness of breath for 2 days. His temperature has not been checked at home but he has been having chills and sweats and body aches. SOB with activity. His cough is nonproductive he has been using increased amounts of albuterol at home from his 's supply. He has hypertension and multiple health problems is not taking medications and says that he cannot swallow pills. Zithromax and ceftriaxone antibiotics started in ER. Lasix and breathing txs started as well. Pt has improved with meds but still having SOB when up and walking. He denies CP, Abd. pain, N/V/D. - Review of Systems Constitutional: No Fever, No Chills Eyes: No Symptoms Ears, Nose, & Throat: No Symptoms, Other (diff. swallowing) Respiratory: Short Of Breath, No Cough Cardiac: No Chest Pain, No Edema, No Syncope Abdominal/Gastrointestinal: No Abdominal Pain, No Nausea, No Vomiting, No Diarrhea Genitourinary Symptoms: No Dysuria Musculoskeletal: No Back Pain, No Neck Pain Skin: Dryness, No Rash Neurological: No Dizziness, No Focal Weakness, No Sensory Changes Psychological: No Symptoms Endocrine: No Symptoms Hematologic/Lymphatic: No Symptoms Immunological/Allergic: No Symptoms Medications & Allergies Home Medications: Home Medication List No Reportable Medications [No Reported Medications] 03/05/23 [History Confirmed 03/05/23] Allergies/Adverse Reactions: Allergies Allergy/AdvReac Type Severity Reaction Status Date / Time No Known Drug Allergies Allergy Verified 08/15/21 18:16 - Past Medical History Past Medical History: Yes Neurological History: TIA ENT History: No Pertinent History Cardiac History: Angina, Coronary Artery Disease, High Cholesterol, Hypertension, Myocardial Infarction (ME) Respiratory History: COPD, Emphysema Endocrine Medical History: No Pertinent History Musculoskelatal History: No Pertinent History GI Medical History: No Pertinent History History: No Pertinent History Pyscho-Social History: No Pertinent History Male Reproductive Disorders: No Pertinent History Comment: heart cath in 2014 - Past Surgical History Past Surgical History: Yes Neuro Surgical History: No Pertinent History Cardiac History: Cardiac Catheterization Respiratory Surgery: No Pertinent History GI Surgical History: No Pertinent History Genitourinary Surgical Hx: No Pertinent History Musculskeletal Surgical Hx: No Pertinent History Male Surgical History: No Pertinent History Other Surgical History: DR HERNANDEZ DID HEART CATH IN 2015 - Social History Smoking Status: Current every day smoker How long have you smoked: 40 years Exposure to second hand smoke: No Alcohol: None Drug Use: none Significant Family History: no pertinent family hx - Physical Exam Vital Signs: Vital Signs - 24 hr Temp Pulse Resp BP Pulse Ox 03/05/23 09:06 76 22 97 03/05/23 08:44 98.0 F 99 H 24 203/130 98 General Appearance: no apparent distress, alert Neurologic Exam: alert, oriented x 3, cooperative, normal mood/affect, nml cerebellar function, nml station & gait, sensation nml, No motor deficits Eye Exam: PERRL/EOMI, eyes nml inspection Ears, Nose, Throat Exam: normal ENT inspection, TMs normal, pharynx normal, moist mucous membranes Neck Exam: normal inspection, non-tender, supple, full range of motion Respiratory Exam: lungs clear, crackles/rales (RLL), No respiratory distress Cardiovascular Exam: normal heart sounds, normal peripheral pulses, tachycardia Gastrointestinal/Abdomen Exam: soft, normal bowel sounds, No tenderness, No mass Back Exam: normal inspection, normal range of motion, No CVA tenderness, No vertebral tenderness Extremity Exam: normal inspection, normal range of motion, pelvis stable Skin Exam: normal color, warm, dry, No rash Lymphatic Exam: No adenopathy Results - Labs Lab/Micro Results: Lab Results-Last 24 Hours 03/05/23 03/05/23 03/05/23 Range/Units 09:05 09:05 09:05 WBC 4.9 (4.0-10.5) x10^3/uL RBC 4.62 (4.1-5.6) x10^6/uL Hgb 15.6 (12.5-18.0) g/dL Hct 45.4 (42-50) % MCV 98.3 (78-100) fL MCH 33.8 H (26-32) pg MCHC 34.4 (32-36) g/dL RDW 11.9 (11.5-14.0) % Plt Count 176 (150-450) x10^3/uL MPV 9.1 (7.5-11.0) fL Gran % 57.4 (36.0-66.0) % Immature Gran % (Auto) 0.4 (0.00-0.4) % Nucleat RBC Rel Count 0.0 (0.00-0.1) % Eos # (Auto) 0 (0-0.5) x10^3/uL Immature Gran # (Auto) 0.02 (0.00-0.03) x10^3u/L Absolute Lymphs (auto) 1.05 (1.0-4.6) x10^3/uL Absolute Monos (auto) 0.98 (0.0-1.3) x10^3/uL Absolute Nucleated RBC 0.00 (0.00-0.01) x10^3u/L Lymphocytes % 21.6 L (24.0-44.0) % Monocytes % 20.2 H (0.0-12.0) % Eosinophils % 0.0 (0.00-5.0) % Basophils % 0.4 (0.0-0.4) % Absolute Granulocytes 2.79 (1.4-6.9) x10^3/uL Basophils # 0.02 (0-0.4) x10^3/uL PT (9.4-12.5) SECONDS INR (0.8-3.0) APTT (25.1-36.5) SECONDS D-Dimer (0.0-0.50) mg/L Sodium 131 L (137-145) mmol/L Potassium 4.1 (3.5-5.1) mmol/L Chloride 98 (98-107) mmol/L Carbon Dioxide 28 (22-30) mmol/L Anion Gap 9.3 (5-15) MEQ/L BUN 13 (9-20) mg/dL Creatinine 0.78 (0.66-1.25) mg/dL Estimated GFR > 60.0 ML/MIN Glucose 102 (74-106) mg/dL Lactic Acid 1.7 (0.4-2.0) Calcium 9.1 (8.4-10.2) mg/dL Magnesium 1.7 (1.6-2.3) mg/dL Total Bilirubin 0.60 (0.2-1.3) mg/dL AST 35 (17-59) U/L ALT 24 (0-50) U/L Alkaline Phosphatase 69 (38-126) U/L Troponin I (0.000-0.034) ng/mL NT-Pro-B Natriuret Pep (<300) pg/mL Serum Total Protein 7.3 (6.3-8.2) g/dL Albumin 4.4 (3.5-5.0) g/dL Influenza Type A Ag (NEGATIVE) Influenza Type B Ag (NEGATIVE) RSV (PCR) (NEGATIVE) SARS-CoV-2 (PCR) (NEGATIVE) 03/05/23 03/05/23 03/05/23 Range/Units 09:05 09:05 09:05 WBC (4.0-10.5) x10^3/uL RBC (4.1-5.6) x10^6/uL Hgb (12.5-18.0) g/dL Hct (42-50) % MCV (78-100) fL MCH (26-32) pg MCHC (32-36) g/dL RDW (11.5-14.0) % Plt Count (150-450) x10^3/uL MPV (7.5-11.0) fL Gran % (36.0-66.0) % Immature Gran % (Auto) (0.00-0.4) % Nucleat RBC Rel Count (0.00-0.1) % Eos # (Auto) (0-0.5) x10^3/uL Immature Gran # (Auto) (0.00-0.03) x10^3u/L Absolute Lymphs (auto) (1.0-4.6) x10^3/uL Absolute Monos (auto) (0.0-1.3) x10^3/uL Absolute Nucleated RBC (0.00-0.01) x10^3u/L Lymphocytes % (24.0-44.0) % Monocytes % (0.0-12.0) % Eosinophils % (0.00-5.0) % Basophils % (0.0-0.4) % Absolute Granulocytes (1.4-6.9) x10^3/uL Basophils # (0-0.4) x10^3/uL PT 11.9 (9.4-12.5) SECONDS INR 1.10 (0.8-3.0) APTT 29.3 (25.1-36.5) SECONDS D-Dimer 0.54 H (0.0-0.50) mg/L Sodium (137-145) mmol/L Potassium (3.5-5.1) mmol/L Chloride (98-107) mmol/L Carbon Dioxide (22-30) mmol/L Anion Gap (5-15) MEQ/L BUN (9-20) mg/dL Creatinine (0.66-1.25) mg/dL Estimated GFR ML/MIN Glucose (74-106) mg/dL Lactic Acid (0.4-2.0) Calcium (8.4-10.2) mg/dL Magnesium (1.6-2.3) mg/dL Total Bilirubin (0.2-1.3) mg/dL AST (17-59) U/L ALT (0-50) U/L Alkaline Phosphatase (38-126) U/L Troponin I 0.038 H* (0.000-0.034) ng/mL NT-Pro-B Natriuret Pep 3280 (<300) pg/mL Serum Total Protein (6.3-8.2) g/dL Albumin (3.5-5.0) g/dL Influenza Type A Ag (NEGATIVE) Influenza Type B Ag (NEGATIVE) RSV (PCR) (NEGATIVE) SARS-CoV-2 (PCR) (NEGATIVE) 03/05/23 03/05/23 Range/Units 09:05 11:00 WBC (4.0-10.5) x10^3/uL RBC (4.1-5.6) x10^6/uL Hgb (12.5-18.0) g/dL Hct (42-50) % MCV (78-100) fL MCH (26-32) pg MCHC (32-36) g/dL RDW (11.5-14.0) % Plt Count (150-450) x10^3/uL MPV (7.5-11.0) fL Gran % (36.0-66.0) % Immature Gran % (Auto) (0.00-0.4) % Nucleat RBC Rel Count (0.00-0.1) % Eos # (Auto) (0-0.5) x10^3/uL Immature Gran # (Auto) (0.00-0.03) x10^3u/L Absolute Lymphs (auto) (1.0-4.6) x10^3/uL Absolute Monos (auto) (0.0-1.3) x10^3/uL Absolute Nucleated RBC (0.00-0.01) x10^3u/L Lymphocytes % (24.0-44.0) % Monocytes % (0.0-12.0) % Eosinophils % (0.00-5.0) % Basophils % (0.0-0.4) % Absolute Granulocytes (1.4-6.9) x10^3/uL Basophils # (0-0.4) x10^3/uL PT (9.4-12.5) SECONDS INR (0.8-3.0) APTT (25.1-36.5) SECONDS D-Dimer (0.0-0.50) mg/L Sodium (137-145) mmol/L Potassium (3.5-5.1) mmol/L Chloride (98-107) mmol/L Carbon Dioxide (22-30) mmol/L Anion Gap (5-15) MEQ/L BUN (9-20) mg/dL Creatinine (0.66-1.25) mg/dL Estimated GFR ML/MIN Glucose (74-106) mg/dL Lactic Acid (0.4-2.0) Calcium (8.4-10.2) mg/dL Magnesium (1.6-2.3) mg/dL Total Bilirubin (0.2-1.3) mg/dL AST (17-59) U/L ALT (0-50) U/L Alkaline Phosphatase (38-126) U/L Troponin I 0.032 (0.000-0.034) ng/mL NT-Pro-B Natriuret Pep (<300) pg/mL Serum Total Protein (6.3-8.2) g/dL Albumin (3.5-5.0) g/dL Influenza Type A Ag NEGATIVE (NEGATIVE) Influenza Type B Ag NEGATIVE (NEGATIVE) RSV (PCR) NEGATIVE (NEGATIVE) SARS-CoV-2 (PCR) NEGATIVE (NEGATIVE) - Radiology Impressions Radiology Exams & Impressions: Radiology Procedures Category Date Time Status CHEST 1 VIEW (PORTABLE) Stat Exams 03/05/23 09:06 Taken CHEST WITH CONTRAST [CT] Stat Exams 03/05/23 10:47 Completed - Other Procedures and Tests Respiratory Therapy 03/05/23 09:10 Respiratory Nebulizer STAT 03/05/23 09:26 Respiratory Therapy Assessment DAILY Assessment/Plan (1) COPD exacerbation Current Visit: Yes Status: Acute Assessment & Plan: - RT eval and treat - Steriods, Duonebs, antibiotics - O2 to keep sat > 92% Code(s): J44.1 - CHRONIC OBSTRUCTIVE PULMONARY DISEASE W (ACUTE) EXACERBATION (2) Elevated d-dimer Current Visit: Yes Status: Acute Assessment & Plan: - D-dimer 0.54 - CT chest: 03/05- negaive for PE 1. No evidence of a filling defect seen in the pulmonary trunk or either pulmonary artery to suggest pulmonary embolism. 2. Significant bilateral centriacinar and paraseptal emphysematous changes. 3. No evidence of definite soft tissue density nodule or consolidation seen in either lung. 4. Multiple hypodense areas of variable size seen scattered in both lobes of the visualized liver, a few showing peripheral post contrast enhancement, would recommend dedicated CT scan abdomen with contrast triphasic protocol for further evaluation. 5. Left adrenal nodule. 6. Non-obstructing left renal calculi. 7. Findings have been stable since the last study. Code(s): R79.89 - OTHER SPECIFIED ABNORMAL FINDINGS OF BLOOD CHEMISTRY (3) Hyponatremia Current Visit: Yes Status: Acute Assessment & Plan: - Mild 131- trend - consider fluid restriction Code(s): E87.1 - HYPO-OSMOLALITY AND HYPONATREMIA (4) CHF (congestive heart failure) Current Visit: Yes Status: Acute Assessment & Plan: - Lasix - No recent echo to review - Echo - tomorrow - Trop 0.038, 0.032,- trend - ice rink attendant- Dr. Miguel - BNP 3280 - Tele - Unable to swallow pills but able if crushed. - Coreg, ASA Code(s): I50.9 - HEART FAILURE, UNSPECIFIED (5) Uncontrolled hypertension Current Visit: Yes Status: Acute Assessment & Plan: - Hydralizine IV PRN - Lasix may help to also bring down. - Coreg for HTN and CHF Code(s): I10 - ESSENTIAL (PRIMARY) HYPERTENSION (6) Liver lesion Current Visit: Yes Status: Acute Assessment & Plan: - CT abd/pelvis with contrast triphasic protocol per recommendation for further eval of liver lesions Code(s): K76.9 - LIVER DISEASE, UNSPECIFIED (7) Nicotine dependence Current Visit: Yes Status: Acute Assessment & Plan: - daily smoker - refused nicotine patch - states he will quit Code(s): F17.200 - NICOTINE DEPENDENCE, UNSPECIFIED, UNCOMPLICATED (8) Difficulty swallowing Current Visit: Yes Status: Acute Assessment & Plan: - Soft diet - ST eval - may need barium swallow - Consider Surg consult if needed. VTE: Lovenox Next of kin: Janusz Churchill [phone] D/C plan: 1-2 days Code status: full Code(s): R13.10 - DYSPHAGIA, UNSPECIFIED
[2023-03-05] MEDS: DUONEB 0.5-3 MG/3 ml Neb IH PRN (13:44)
[2023-03-05] MEDS: ECOTRIN 81 MG PO SCH (15:09)
[2023-03-05] MEDS: ENOXAPARIN SODIUM SQ SCH (15:09)
[2023-03-05] MEDS ORDERED: Ativan 2 MG/1 ML VIAL IV ONE (17:02)
[2023-03-05] MEDS: PULMICORT 0.5 MG/2 ML RESPULES IH SCH (18:57)
--- NOTE | 2023-03-05 19:58 | XRAY ---
Indication: Short of breath. COPD. Comparison: April 17, 2019 Portable chest unchanged again hyperinflated and clear. Heart not enlarged. Bony thorax intact again with mild degenerative changes. No new/acute findings.
[2023-03-05] MEDS: Coreg PO SCH (21:21)
[2023-03-05] MEDS: solu-MEDROL 60 MG, Sterile H2O 10 ml 2 ML IV SCH ×2 (21:25)
[2023-03-05] MEDS ORDERED: solu-MEDROL 60 MG, Sterile H2O 10 ml 1 ML IV SCH ×2 (22:00)
[2023-03-05] MEDS ORDERED: solu-MEDROL 20 MG, Sterile H2O 10 ml 1 ML IV SCH ×2 (22:00)
[2023-03-05] MEDS ORDERED: solu-MEDROL 40 MG, Sterile H2O 10 ml 1 ML IV SCH ×2 (22:00)
[2023-03-06] MEDS: PULMICORT 0.5 MG/2 ML RESPULES IH SCH ×3 (00:45→18:20)
[2023-03-06 04:42] LABS: Hematocrit 44.5 % (42-50); Mean Corpuscular Hgb Concent. 33.7 g/dL (32-36); Mean Platelet Volume 9.5 fL (7.5-11.0); Platelet Count 193 x10^3/uL (150-450); Red Blood Count 4.54 x10^6/uL (4.1-5.6); Red Cell Distribution Width 12.1 % (11.5-14.0); White Blood Count 3.5 x10^3/uL (4.0-10.5)
[2023-03-06 04:59] LABS: ALKALINE PHOSPHATASE 59 U/L (38-126); ANION GAP 12.1 MEQ/L (5-15); BLOOD UREA NITROGEN 24 mg/dL (9-20); CHLORIDE 98 mmol/L (98-107); Calcium 8.7 mg/dL (8.4-10.2); Carbon Dioxide 25 mmol/L (22-30); Creatinine 1 0.95 mg/dL (0.66-1.25); EST GLOMERULAR FILTRATION RATE > 60.0 ML/MIN; Glucose 133 mg/dL (74-106); Potassium 3.8 mmol/L (3.5-5.1); SGOT/AST 29 U/L (17-59); SGPT/ALT 23 U/L (0-50); SODIUM 131 mmol/L (137-145); Total Protein 7.1 g/dL (6.3-8.2)
[2023-03-06 05:06] LABS: Risk Ratio 2.2
[2023-03-06] MEDS: DUONEB 0.5-3 MG/3 ml Neb IH PRN (06:54)
[2023-03-06] MEDS: ECOTRIN 81 MG PO SCH (10:18)
[2023-03-06] MEDS: Coreg PO SCH ×2 (10:18→22:17)
[2023-03-06] MEDS: solu-MEDROL 60 MG, Sterile H2O 10 ml 2 ML IV SCH ×4 (10:18→22:16)
[2023-03-06] MEDS: Lasix 40 MG/4 ML IV SCH (10:21)
[2023-03-06] MEDS: ROCEPHIN 1 Gm-D5w 50 ml Bag** 1 G/50 ML IVPB IV SCH (10:22)
[2023-03-06] MEDS: ENOXAPARIN SODIUM SQ SCH (10:22)
--- NOTE | 2023-03-06 11:30 | PCM.NOTE ---
Date and Time: 03/06/231124 Subjective Assessment: is a 62 year old male with PMHx of TIA, angina, CAD, hyperlipidemia, HTN, OR, COPD, and emphysema who presented to ED 03/05 with complaints of cough and shortness of breath with onset 2 days prior as well as chills/sweats and body aches. SOB with activity. His cough is nonproductive he has been using increased amounts of albuterol at home from his 's supply. He has hypertension and multiple health problems is not taking medications due to trouble swallowing pills and medication costs. CT negative for PE, significant for bilateral centriacinar and paraseptal emphysPatient admitted for COPD/CHF exacerbation, currently being treated with Ceftriaxone, Lasix, duonebs. Patient endorses improvement overall in symptoms. 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 Lung sounds with exp wheezing on auscultation. States he uses his 's home oxygen as well as her nebulizer and daughter's trelegy when needed. Discussed medication non-compliance, patient states he does have issues with swallowing but also cost is a factor. CM to discuss resources with patient. Will assess for home oxygen needs. - Review of Systems Constitutional: No Symptoms Eyes: No Symptoms Ears, Nose, & Throat: No Symptoms Respiratory: Cough, Short Of Breath Cardiac: No Symptoms Abdominal/Gastrointestinal: No Symptoms Genitourinary Symptoms: No Symptoms Musculoskeletal: No Symptoms Skin: No Symptoms Neurological: No Symptoms Psychological: No Symptoms Endocrine: No Symptoms Hematologic/Lymphatic: No Symptoms Immunological/Allergic: No Symptoms Objective Exam General Appearance: no apparent distress Neurologic Exam: alert, oriented x 3, cooperative Skin Exam: normal color Eye Exam: PERRL Ears, Nose, Throat Exam: normal ENT inspection Neck Exam: normal inspection Respiratory Exam: wheezing Cardiovascular Exam: regular rate/rhythm Gastrointestinal/Abdomen Exam: soft, normal bowel sounds Extremity Exam: normal inspection Back Exam: normal inspection OBJECTIVE DATA Vital Signs: Vital Signs - 24 hr Temp Pulse Resp BP Pulse Ox 03/06/23 07:34 85 18 95 03/06/23 06:54 97.5 F 69 17 172/90 95 03/06/23 04:00 98.2 F 88 23 163/95 95 03/06/23 01:50 89 20 93 L 03/06/23 00:00 97.5 F 81 23 175/99 98 03/05/23 19:57 97.5 F 88 25 H 134/89 99 03/05/23 18:55 88 22 98 03/05/23 16:00 97.1 F 112 H 22 164/81 94 L 03/05/23 13:50 104 H 18 94 L 03/05/23 13:32 97.5 F 99 H 22 133/98 96 Pain Assessment - Last Documented Pain Intensity 0 Intake and Output: Intake & Output 03/03/23 03/04/23 03/05/23 03/06/23 11:59 11:59 11:59 11:59 Intake Total 960 Output Total 0 Balance 960 Weight 68.4 kg 68 kg Lab Results: Lab Results-Last 24 Hours 03/05/23 03/05/23 03/06/23 Range/Units 11:00 17:14 04:18 WBC (4.0-10.5) x10^3/uL RBC (4.1-5.6) x10^6/uL Hgb (12.5-18.0) g/dL Hct (42-50) % MCV (78-100) fL MCH (26-32) pg MCHC (32-36) g/dL RDW (11.5-14.0) % Plt Count (150-450) x10^3/uL MPV (7.5-11.0) fL Sodium (137-145) mmol/L Potassium (3.5-5.1) mmol/L Chloride (98-107) mmol/L Carbon Dioxide (22-30) mmol/L Anion Gap (5-15) MEQ/L BUN (9-20) mg/dL Creatinine (0.66-1.25) mg/dL Estimated GFR ML/MIN Glucose (74-106) mg/dL Calcium (8.4-10.2) mg/dL Total Bilirubin (0.2-1.3) mg/dL AST (17-59) U/L ALT (0-50) U/L Alkaline Phosphatase (38-126) U/L Troponin I 0.032 0.023 (0.000-0.034) ng/mL Serum Total Protein (6.3-8.2) g/dL Albumin (3.5-5.0) g/dL Triglycerides 67 (30-150) mg/dL Cholesterol 167 (50-200) mg/dL LDL Cholesterol 79 (30-100) mg/dL HDL Cholesterol 75 H (40-60) mg/dL Heart Disease Risk Ratio 2.2 03/06/23 03/06/23 Range/Units 04:18 04:18 WBC 3.5 L (4.0-10.5) x10^3/uL RBC 4.54 (4.1-5.6) x10^6/uL Hgb 15.0 (12.5-18.0) g/dL Hct 44.5 (42-50) % MCV 98.0 (78-100) fL MCH 33.0 H (26-32) pg MCHC 33.7 (32-36) g/dL RDW 12.1 (11.5-14.0) % Plt Count 193 (150-450) x10^3/uL MPV 9.5 (7.5-11.0) fL Sodium 131 L (137-145) mmol/L Potassium 3.8 (3.5-5.1) mmol/L Chloride 98 (98-107) mmol/L Carbon Dioxide 25 (22-30) mmol/L Anion Gap 12.1 (5-15) MEQ/L BUN 24 H (9-20) mg/dL Creatinine 0.95 (0.66-1.25) mg/dL Estimated GFR > 60.0 ML/MIN Glucose 133 H (74-106) mg/dL Calcium 8.7 (8.4-10.2) mg/dL Total Bilirubin 0.50 (0.2-1.3) mg/dL AST 29 (17-59) U/L ALT 23 (0-50) U/L Alkaline Phosphatase 59 (38-126) U/L Troponin I (0.000-0.034) ng/mL Serum Total Protein 7.1 (6.3-8.2) g/dL Albumin 4.0 (3.5-5.0) g/dL Triglycerides (30-150) mg/dL Cholesterol (50-200) mg/dL LDL Cholesterol (30-100) mg/dL HDL Cholesterol (40-60) mg/dL Heart Disease Risk Ratio Radiology Exams: Radiology Procedures Category Date Time Status CHEST 1 VIEW (PORTABLE) Stat Exams 03/05/23 09:06 Completed CHEST WITH CONTRAST [CT] Stat Exams 03/05/23 10:47 Completed CTA ABD/PEL W AND/OR W/O CONTR [CT] Routine Exams 03/05/23 13:06 Completed ECHO W/2D AND DOPPLER [US] Routine Exams 03/06/23 07:36 Taken Assessment/Plan (1) CHF (congestive heart failure) Current Visit: Yes Status: Acute Assessment & Plan: - Lasix - No recent echo to review - Echo - tomorrow - Trop 0.038, 0.032,- trend - rolled glass crosscutter- Dr. Miguel - BNP 3280 - Tele - Unable to swallow pills but able if crushed. - Coreg, ASA 03/06: -Echo pending Code(s): I50.9 - HEART FAILURE, UNSPECIFIED (2) COPD exacerbation Current Visit: Yes Status: Acute Assessment & Plan: - RT eval and treat - Steriods, Duonebs, antibiotics - O2 to keep sat > 92% Code(s): J44.1 - CHRONIC OBSTRUCTIVE PULMONARY DISEASE W (ACUTE) EXACERBATION (3) Difficulty swallowing Current Visit: Yes Status: Acute Assessment & Plan: - Soft diet - ST eval - may need barium swallow - Consider Surg consult if needed. 03/06: -ST eval pending Code(s): R13.10 - DYSPHAGIA, UNSPECIFIED (4) Elevated d-dimer Current Visit: Yes Status: Acute Assessment & Plan: - D-dimer 0.54 - CT chest: 03/05- negaive for PE 1. No evidence of a filling defect seen in the pulmonary trunk or either pulmonary artery to suggest pulmonary embolism. 2. Significant bilateral centriacinar and paraseptal emphysematous changes. 3. No evidence of definite soft tissue density nodule or consolidation seen in either lung. 4. Multiple hypodense areas of variable size seen scattered in both lobes of the visualized liver, a few showing peripheral post contrast enhancement, would recommend dedicated CT scan abdomen with contrast triphasic protocol for further evaluation. 5. Left adrenal nodule. 6. Non-obstructing left renal calculi. 7. Findings have been stable since the last study Code(s): R79.89 - OTHER SPECIFIED ABNORMAL FINDINGS OF BLOOD CHEMISTRY (5) Hyponatremia Current Visit: Yes Status: Acute Assessment & Plan: - Mild 131- trend - consider fluid restriction Code(s): E87.1 - HYPO-OSMOLALITY AND HYPONATREMIA (6) Liver lesion Current Visit: Yes Status: Acute Assessment & Plan: - CT abd/pelvis with contrast triphasic protocol per recommendation for further eval of liver lesions Code(s): K76.9 - LIVER DISEASE, UNSPECIFIED (7) Nicotine dependence Current Visit: Yes Status: Acute Assessment & Plan: - daily smoker - refused nicotine patch - states he will quit Code(s): F17.200 - NICOTINE DEPENDENCE, UNSPECIFIED, UNCOMPLICATED (8) SOB (shortness of breath) Current Visit: Yes Status: Acute Assessment & Plan: -see copd exacerbation Code(s): R06.02 - SHORTNESS OF BREATH (9) Uncontrolled hypertension Current Visit: Yes Status: Acute Assessment & Plan: - Hydralizine IV PRN - Lasix may help to also bring down. - Coreg for HTN and CHF VTE: Lovenox Next of kin: Janusz Churhcill [phone] D/C plan: 1-2 days Code status: full Code(s): I10 - ESSENTIAL (PRIMARY) HYPERTENSION
[2023-03-06] MEDS ORDERED: Lasix 20 MG/2 ML IV ONE (13:49)
--- NOTE | 2023-03-06 16:43 | XRAY ---
Indication: Liver lesion. Multiple contiguous axial images obtained through the abdomen and pelvis prior to and following 80 cc Isovue-[id number] contrast as ordered. Comparison: CT abdomen/pelvis without contrast October 30, 2014 Lung bases again hyperinflated and clear. Heart not enlarged. Noncontrasted images again demonstrates a few nonobstructing left renal punctate calculi. No new visceral calcifications/calculi. Noncontrasted stomach and bowel loops nonobstructed with normal appendix. Stable 2 cm left adrenal adenoma. No free fluid/air. Postcontrast images demonstrate normal visceral enhancement and renal excretion again with multiple small bilateral renal cysts. Also stable multiple hepatic cysts again largest right lobe measuring 2 cm. Remaining liver, gallbladder, pancreas, spleen, adrenal glands, kidneys, ureters, and bladder are unremarkable. Worsening moderate aortoiliac calcifications. No AAA or pathologic retroperitoneal lymphadenopathy. Osseous structures intact again with mild multilevel generative spondylosis and bilateral L5 spondylolysis without listhesis. Impression: 1. Again nonobstructing left renal micro-calculi. No new pathologic visceral calcifications/calculi. 2. Stable polycystic kidneys and hepatic cysts. 3. Again incidental pulmonary emphysema, left adrenal adenoma, arteriosclerotic disease, and chronic bony findings. 4. Remaining CT abdomen/pelvis with and without contrast exam is negative.
--- NOTE | 2023-03-07 05:46 | PCM.NOTE ---
Date and Time: 03/07/23 0541 Subjective Assessment: is a 62 year old male with PMHx of TIA, angina, CAD, hyperlipidemia, HTN, MA, COPD, and emphysema who presented to ED 03/05 with complaints of cough and shortness of breath with onset 2 days prior as well as chills/sweats and body aches. SOB with activity. His cough is nonproductive he has been using increased amounts of albuterol at home from his 's supply. He has hypertension and multiple health problems is not taking medications due to trouble swallowing pills and medication costs. CT chest negative for PE, significant for bilateral centriacinar and paraseptal emphysema. CT ab/pelvis showing nonobstructing left renal micro-calculi. No new pathologic visceral calcifications/calculi. Stable polycystic kidneys and hepatic cysts. Again incidental pulmonary emphysema, left adrenal adenoma, arteriosclerotic disease, and chronic bony findings.Patient admitted for COPD/CHF exacerbation, currently being treated with Ceftriaxone, Lasix, duonebs. Patient endorses improvement overall in symptoms. 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 Lung sounds with exp wheezing on auscultation. States he uses his 's home oxygen as well as her nebulizer and daughter's trelegy when needed. Discussed medication non-compliance, patient states he does have issues with swallowing but also cost is a factor. CM to discuss resources with patient. Will assess for home oxygen needs. Continue antibiotics and steroids and bronchodilators OBJECTIVE DATA Vital Signs: Vital Signs - 24 hr Temp Pulse Resp BP Pulse Ox 03/07/23 04:00 97.1 F 56 L 18 171/84 95 03/06/23 22:49 96.8 F 51 L 16 181/90 96 03/06/23 19:14 97.3 F 61 16 162/77 95 03/06/23 18:20 63 20 97 03/06/23 12:00 97.1 F 63 18 144/73 97 03/06/23 07:34 85 18 95 03/06/23 06:54 97.5 F 69 17 172/90 95 Pain Assessment - Last Documented Pain Intensity 0 Intake and Output: Intake & Output 03/04/23 03/05/23 03/06/23 03/07/23 11:59 11:59 11:59 11:59 Intake Total 960 600 Output Total 0 Balance 960 600 Weight 68.4 kg 68 kg Radiology Exams: Radiology Procedures Category Date Time Status ABDOMEN AND PELVIS W&WO CONTRA [CT] Stat Exams 03/06/23 14:23 Completed CHEST 1 VIEW (PORTABLE) Stat Exams 03/05/23 09:06 Completed CHEST WITH CONTRAST [CT] Stat Exams 03/05/23 10:47 Completed ECHO W/2D AND DOPPLER [US] Routine Exams 03/06/23 07:36 Taken Multi-Disciplinary Progress Notes: Multi-Disciplinary Progress Notes 03/06/23 13:02 Case Management Note by Mary Kay Richey S/W WITH PATIENT AND HE IS OPEN TO OTHER ASSISTANCE AVAILABLE. REFERRAL MADE TO THRIVE. REFERRAL ALSO MADE TO ACO. INFO PROVIDED TO INSURANCE FINANCIAL NAVIGATOR FOR PATIENT. ALSO TOLD HIM TO ASK HIS MD IF THEY HAD SAMPLES OF MEDS. Initialized on 03/06/23 13:02 - END OF NOTE 03/06/23 11:39 Speech Therapy Note by Ariel(Cee#[id number],Nona [id number] SPEECH THERAPY NOTE: ORDERS RECEIVED FOR SWALLOW EVALUATION. DISCUSSED WITH PATIENT WHO INDICATED SWALLOWING DIFFICULTY ONLY OCCURRED WITH PILLS AND MEAT. RECOMMEND BARIUM SWALLOW/UGI/ESOPHOGRAM TO ASSESS ESOPHAGEAL FUNCTION. DISCUSSED WITH DRY WALL PLASTERER. DUE TO PATIENT'S INCONSISTENT RESPONSES TO DRY WALL PLASTERER, NURSE, AND ST, BEDSIDE SWALLOW EVALUATION TO BE COMPLETED WITH LUNCH TRAY THIS DATE. MS GRACIA, CCC/CRANE OPERATOR CAB Initialized on 03/06/23 11:39 - END OF NOTE Assessment/Plan (1) CHF (congestive heart failure) Current Visit: Yes Status: Acute Assessment & Plan: - Lasix - No recent echo to review - Echo - tomorrow - Trop 0.038, 0.032,- trend - mortgage processor- Dr. Miguel - BNP 3280 - Tele - Unable to swallow pills but able if crushed. - Coreg, ASA 03/06: -Echo pending Code(s): I50.9 - HEART FAILURE, UNSPECIFIED (2) COPD exacerbation Current Visit: Yes Status: Acute Assessment & Plan: - RT eval and treat - Steriods, Duonebs, antibiotics - O2 to keep sat > 92% 03/07: -Home oxygen eval, referral to pulm as OP Code(s): J44.1 - CHRONIC OBSTRUCTIVE PULMONARY DISEASE W (ACUTE) EXACERBATION (3) Difficulty swallowing Current Visit: Yes Status: Acute Assessment & Plan: - Soft diet - ST eval - may need barium swallow - Consider Surg consult if needed. 03/06: -ST eval pending Code(s): R13.10 - DYSPHAGIA, UNSPECIFIED (4) Elevated d-dimer Current Visit: Yes Status: Acute Assessment & Plan: - D-dimer 0.54 - CT chest: 03/05- negaive for PE 1. No evidence of a filling defect seen in the pulmonary trunk or either pulmonary artery to suggest pulmonary embolism. 2. Significant bilateral centriacinar and paraseptal emphysematous changes. 3. No evidence of definite soft tissue density nodule or consolidation seen in either lung. 4. Multiple hypodense areas of variable size seen scattered in both lobes of the visualized liver, a few showing peripheral post contrast enhancement, would recommend dedicated CT scan abdomen with contrast triphasic protocol for further evaluation. 5. Left adrenal nodule. 6. Non-obstructing left renal calculi. 7. Findings have been stable since the last study Code(s): R79.89 - OTHER SPECIFIED ABNORMAL FINDINGS OF BLOOD CHEMISTRY (5) Hyponatremia Current Visit: Yes Status: Acute Assessment & Plan: - Mild 131- trend - consider fluid restriction Code(s): E87.1 - HYPO-OSMOLALITY AND HYPONATREMIA (6) Liver lesion Current Visit: Yes Status: Acute Assessment & Plan: - CT abd/pelvis with contrast triphasic protocol per recommendation for further eval of liver lesions Code(s): K76.9 - LIVER DISEASE, UNSPECIFIED (7) Nicotine dependence Current Visit: Yes Status: Acute Assessment & Plan: - daily smoker - refused nicotine patch - states he will quit Code(s): F17.200 - NICOTINE DEPENDENCE, UNSPECIFIED, UNCOMPLICATED (8) SOB (shortness of breath) Current Visit: Yes Status: Acute Assessment & Plan: -see copd exacerbation Code(s): R06.02 - SHORTNESS OF BREATH (9) Uncontrolled hypertension Current Visit: Yes Status: Acute Assessment & Plan: - Hydralizine IV PRN - Lasix may help to also bring down. - Coreg for HTN and CHF VTE: Lovenox Next of kin: Janusz Churchill [phone] D/C plan: 1-2 days Code status: full Code(s): I10 - ESSENTIAL (PRIMARY) HYPERTENSION
[2023-03-07 06:42] VITALS: TEMP 96.6
[2023-03-07] MEDS: DUONEB 0.5-3 MG/3 ml Neb IH PRN ×2 (06:55→13:05)
[2023-03-07] MEDS: PULMICORT 0.5 MG/2 ML RESPULES IH SCH (06:55)
[2023-03-07] MEDS: ECOTRIN 81 MG PO SCH (09:37)
[2023-03-07] MEDS: Coreg PO SCH (09:37)
[2023-03-07] MEDS: Lasix 40 MG/4 ML IV SCH (09:38)
[2023-03-07] MEDS: ENOXAPARIN SODIUM SQ SCH (09:40)
[2023-03-07] MEDS: solu-MEDROL 60 MG, Sterile H2O 10 ml 2 ML IV SCH ×2 (09:41)
[2023-03-07] MEDS: ROCEPHIN 1 Gm-D5w 50 ml Bag** 1 G/50 ML IVPB IV SCH (09:45)
[2023-03-07 09:54] VITALS: BP 137/65
--- NOTE | 2023-03-07 10:10 | ECHO ---
Transthoracic echocardiographic examination and color Doppler was done on 03/06/2023. INDICATION: Congestive heart failure, shortness of breath, hypertension. IMPRESSION: 1) NO DEFINITE REGIONAL WALL MOTION ABNORMALITY. ESTIMATED GLOBAL LEFT VENTRICULAR EJECTION FRACTION OF AROUND 50 TO 55%. 2) MILD TRICUSPID REGURGITATION. RIGHT VENTRICULAR SYSTOLIC PRESSURE OF 39 MM OF MERCURY. 3) LEFT VENTRICULAR HYPERTROPHY. 4) MILDLY DILATED AORTA. The left ventricle is visualized and demonstrated adequate motion of all the segments. Estimated global left ventricular ejection fraction 50 to 55%. There is left ventricular hypertrophy. The mitral valve is seen and this opens adequately. There is trace mitral regurgitation. Left atrium is normal. The aortic valve opens adequately. There is no significant gradient across the left ventricular outflow tract. The right side chambers are mildly dilated. There is mild tricuspid regurgitation. The right ventricular systolic pressure of 39 mm of Mercury. The aortic root appears to be mildly dilated.
--- NOTE | 2023-03-07 12:47 | PCM.DS ---
Discharge Summary Date of Admission: 03/05/23 13:26 Date of Discharge: 03/07/23 Admitting Physician: RIKA LANGE MD Primary Care Provider: NO FAMILY DOCTOR Allergies Allergies No Known Drug Allergies Allergy (Verified 08/15/21 18:16) Hospital Summary - Hospital Course Hospital Course: is a 62 year old male with PMHx of TIA, angina, CAD, hyperlipidemia, HTN, ID, COPD, and emphysema who presented to ED 03/05 with co mplaints of cough and shortness of breath with onset 2 days prior as well as chills/sweats and body aches. SOB with activity. His cough is nonproductive he has been using increased amounts of albuterol at home from his 's supply. He has hypertension and multiple health problems is not taking medications due to trouble swallowing pills and medication costs. CT chest negative for PE, significant for bilateral centriacinar and paraseptal emphysema. CT ab/pelvis showing nonobstructing left renal micro-calculi. No new pathologic visceral calcifications/calculi. Stable polycystic kidneys and hepatic cysts. Again incidental pulmonary emphysema, left adrenal adenoma, arteriosclerotic disease, and chronic bony findings.Patient admitted for COPD/CHF exacerbation, during hospitalization treated with Ceftriaxone, Lasix, duonebs. Patient endorses improvement overall in symptoms. 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 Lung sounds with exp wheezing on auscultation. States he uses his 's home oxygen as well as her nebulizer and daughter's trelegy when needed. Discussed medication non-compliance, patient states he does have issues with swallowing but also cost is a factor. CM assessed with resources provided for medication cost. Home oxygen set up, nebulizer cutter machine. Stable for discharge. Patient advised follow up with pcp, cardiology, and pulmonology. New Diagnosis:COPD/CHF exacerbation New Medications: Albuterol inh/Laba (will coal picker from Dr. Flores at appt 03/08/23), medrol dose pack, DuoNebs, home oxygen, ASA, Coreg Follow Up: PCP/Cards/ pulmonology Latest Assessment & Plan (1) CHF (congestive heart failure) Current Visit: Yes Status: Acute Assessment & Plan: - Lasix - No recent echo to review - Echo - tomorrow - Trop 0.038, 0.032,- trend - horticultural agent- Dr. Miguel - BNP 3280 - Tele - Unable to swallow pills but able if crushed. - Coreg, ASA 03/06: -Echo pending Code(s): I50.9 - HEART FAILURE, UNSPECIFIED (2) COPD exacerbation Current Visit: Yes Status: Acute Assessment & Plan: - RT eval and treat - Steriods, Duonebs, antibiotics - O2 to keep sat > 92% 03/07: -Home oxygen eval, referral to pulm as OP Code(s): J44.1 - CHRONIC OBSTRUCTIVE PULMONARY DISEASE W (ACUTE) EXACERBATION (3) Difficulty swallowing Current Visit: Yes Status: Acute Assessment & Plan: - Soft diet - ST eval - may need barium swallow - Consider Surg consult if needed. 03/06: -ST eval pending Code(s): R13.10 - DYSPHAGIA, UNSPECIFIED (4) Elevated d-dimer Current Visit: Yes Status: Acute Assessment & Plan: - D-dimer 0.54 - CT chest: 03/05- negaive for PE 1. No evidence of a filling defect seen in the pulmonary trunk or either pulmonary artery to suggest pulmonary embolism. 2. Significant bilateral centriacinar and paraseptal emphysematous changes. 3. No evidence of definite soft tissue density nodule or consolidation seen in either lung. 4. Multiple hypodense areas of variable size seen scattered in both lobes of the visualized liver, a few showing peripheral post contrast enhancement, would recommend dedicated CT scan abdomen with contrast triphasic protocol for further evaluation. 5. Left adrenal nodule. 6. Non-obstructing left renal calculi. 7. Findings have been stable since the last study Code(s): R79.89 - OTHER SPECIFIED ABNORMAL FINDINGS OF BLOOD CHEMISTRY (5) Hyponatremia Current Visit: Yes Status: Acute Assessment & Plan: - Mild 131- trend - consider fluid restriction Code(s): E87.1 - HYPO-OSMOLALITY AND HYPONATREMIA (6) Liver lesion Current Visit: Yes Status: Acute Assessment & Plan: - CT abd/pelvis with contrast triphasic protocol per recommendation for further eval of liver lesions Code(s): K76.9 - LIVER DISEASE, UNSPECIFIED (7) Nicotine dependence Current Visit: Yes Status: Acute Assessment & Plan: - daily smoker - refused nicotine patch - states he will quit Code(s): F17.200 - NICOTINE DEPENDENCE, UNSPECIFIED, UNCOMPLICATED (8) SOB (shortness of breath) Current Visit: Yes Status: Acute Assessment & Plan: -see copd exacerbation Code(s): R06.02 - SHORTNESS OF BREATH (9) Uncontrolled hypertension Current Visit: Yes Status: Acute Assessment & Plan: - Hydralizine IV PRN - Lasix may help to also bring down. - Coreg for HTN and CHF I spent 35 minutes [id number] with the patient on the day of discharge performing discharge exam, discussing hospital stay and discharge instructions with patient and caregivers, preparation of discharge records, prescriptions & referral forms and addressing any questions/concerns the patient had as documented above. - Vitals & Intake/Output Vital Signs: Vital Signs Temperature 96.6 F 03/07/23 06:41 Pulse Rate 60 03/07/23 09:53 Respiratory Rate 18 03/07/23 09:53 Blood Pressure 137/65 03/07/23 09:53 O2 Sat by Pulse Oximetry 98 03/07/23 09:53 Intake & Output: Intake & Output 03/05/23 03/06/23 03/07/23 03/08/23 11:59 11:59 11:59 11:59 Intake Total 960 960 Output Total 0 Balance 960 960 Weight 68.4 kg 68 kg - Lab Result Diagrams: 03/06/23 04:18 03/06/23 04:18 Micro Results-Entire Visit: Microbiology 03/05/23 09:07 Blood Culture - Preliminary Blood 03/05/23 09:11 Blood Culture - Preliminary Blood - Radiology Exams Ordered Rad Exams-Entire Visit: Radiology Procedures Category Date Time Status ABDOMEN AND PELVIS W&WO CONTRA [CT] Stat Exams 03/06/23 14:23 Completed ECHO W/2D AND DOPPLER [US] Routine Exams 03/06/23 07:36 Draft - Procedures and Test Procedures and Tests throughout Hospitalization: Therapy Orders & Screens 03/05/23 09:10 Respiratory Nebulizer STAT Comment: 03/05/23 09:26 Respiratory Therapy Assessment DAILY Comment: 03/05/23 13:34 Respiratory Therapy Assessment DAILY Comment: Diagnosis: COPD exacerbation 03/05/23 13:46 Oxygen Nasal Cannula 2 lpm Comment: keep O2 > 92% Diagnosis: COPD exacerbation 03/05/23 13:49 ST Eval & Treat ( Order) .as ordered Comment: Physician Instructions: Reason For Exam: Evaluate: Yes Treat: Yes Reason for Eval: Pt feels he chokes on anything solid. Unable to take pills due to sensation. Not eating well. Diagnosis: COPD exacerbation 03/05/23 13:50 Smoking Cessation Education ONCE Comment: Diagnosis: COPD exacerbation Smoking Status: Current every day smoker How long have you smoked: 40 years Have you smoked in the past 12 months: Yes Approximately how many cigarettes per day: 1 PPD Do you dip or chew tobacco: No If,Former Smoker,when did you quit: 2 WEEKS AGO 03/06/23 12:20 Qualify for Home Oxygen TODAY Comment: Diagnosis: COPD exacerbation Discharge Exam General Appearance: no apparent distress Neurologic Exam: alert, oriented x 3, cooperative Eye Exam: PERRL Ears, Nose, Throat Exam: normal ENT inspection Neck Exam: normal inspection Respiratory Exam: wheezing Cardiovascular Exam: regular rate/rhythm, normal heart sounds Gastrointestinal/Abdomen Exam: soft, normal bowel sounds Male Genitalia Exam: deferred Rectal Exam: deferred Final Diagnosis/Problem List - Final Discharge Diagnosis/Problem (1) CHF (congestive heart failure) Current Visit: Yes Status: Acute Code(s): I50.9 - HEART FAILURE, UNSPECIFIED (2) COPD exacerbation Current Visit: Yes Status: Acute Code(s): J44.1 - CHRONIC OBSTRUCTIVE PULMONARY DISEASE W (ACUTE) EXACERBATION (3) Difficulty swallowing Current Visit: Yes Status: Acute Code(s): R13.10 - DYSPHAGIA, UNSPECIFIED (4) Elevated d-dimer Current Visit: Yes Status: Acute Code(s): R79.89 - OTHER SPECIFIED ABNORMAL FINDINGS OF BLOOD CHEMISTRY (5) Hyponatremia Current Visit: Yes Status: Acute Code(s): E87.1 - HYPO-OSMOLALITY AND HYPONATREMIA (6) Liver lesion Current Visit: Yes Status: Acute Code(s): K76.9 - LIVER DISEASE, UNSPECIFIED (7) Nicotine dependence Current Visit: Yes Status: Acute Code(s): F17.200 - NICOTINE DEPENDENCE, UNSPECIFIED, UNCOMPLICATED (8) SOB (shortness of breath) Current Visit: Yes Status: Acute Code(s): R06.02 - SHORTNESS OF BREATH (9) Uncontrolled hypertension Current Visit: Yes Status: Acute Code(s): I10 - ESSENTIAL (PRIMARY) HYPERTENSION - Discharge Discharge Date: 03/07/23 Disposition: Home, Self-Care Condition: Stable Prescriptions: New Carvedilol [Coreg ] 6.25 mg PO BID 30 Days #60 tablet Albuterol/Ipratropium 3ml Neb* [DUONEB 0.5-3 MG/3 ml Neb] 3 ml IH Q4HPRN PRN 30 Days #180 amp PRN Reason: Shortness Of Breath/Wheezing Aspirin EC 81 mg [Ecotrin 81 mg] 81 mg PO QAM 30 Days #30 tablet Methylprednisolone Packet [Medrol Dosepack] 4 mg PO UD #30 packet Additional Instructions: YOU NEED TO CONTACT INSURANCE FINANCIAL NAVIGATOR BERTO CUENCA AT [phone] FOR ADDITIONAL ASSISTANCE OXYGEN AND NEBULIZER SNOW GROOMER THROUGH [employer]. WILL NEED TO CALL [phone] WHEN GET HOME FOR DELIVERY Follow up with: REMIGIO ROMAN DO [ACTIVE STAFF] - MINNA FLORES [ACTIVE STAFF] - 03/08/23 2:00 pm (AT [facility])
[2023-03-07 13:19] VITALS: PULSE 62; RESP 22; O2SAT 95
== END 2023-03-07 13:26 | disposition home or self-care (01) ==
LOC: ED 08:35 → MED SURG 13:26
PROVIDERS: ADMIT Internal Medicine; ATTEND Internal Medicine
DX: I11.0 Hypertensive heart disease with heart failure (principal); I50.9 Heart failure, unspecified; J44.1 Chronic obstructive pulmonary disease with (acute) exacerbation; R13.10 Dysphagia, unspecified; R79.89 Other specified abnormal findings of blood chemistry; E87.1 Hypo-osmolality and hyponatremia; F17.200 Nicotine dependence, unspecified, uncomplicated; K76.9 Liver disease, unspecified; I25.10 Atherosclerotic heart disease of native coronary artery without angina pectoris; E78.5 Hyperlipidemia, unspecified; I25.2 Old myocardial infarction; R06.02 Shortness of breath; Z20.828 Contact with and (suspected) exposure to other viral communicable diseases; Z91.148 Patient's other noncompliance with medication regimen for other reason; Z86.73 Personal history of transient ischemic attack (TIA), and cerebral infarction without residual deficits
CPT/HCPCS: 0241U; 36000; 36415; 71045; 71260; 74178; 80053; 80061; 83605; 83721; 83735; 83880; 84484; 85025; 85027; 85379; 85610; 85730; 87040; 92610; 93005; 93306; 94640; 94762; 96360; 96365; 96368; 96374; 96375; 99284; Q3014; 74174; 93268; J0360; J0456; J0696; J1650; J1940; J2060; J2930; A9270-GY; G0378

== ENCOUNTER 2023-06-25 15:07 | Emergency (ER) | payer MEDICARE ==
[2023-06-25 15:11] VITALS: TEMP 99.2
[2023-06-25] MEDS ORDERED: solu-MEDROL 125 MG, Sterile H2O 10 ml 2 ML IV ONE ×2 (15:26)
[2023-06-25] MEDS ORDERED: Sodium Chloride 0.9% 1000 ML 1,000 ML IV STA (15:26)
[2023-06-25] MEDS ORDERED: DUONEB 0.5-3 MG/3 ml Neb IH ONE (15:26)
[2023-06-25] MEDS ORDERED: PULMICORT 0.5 MG/2 ML RESPULES IH ONE (15:28)
--- NOTE | 2023-06-25 15:36 | ERPHSYRPT ---
- History of Present Illness Time Seen by Provider: 06/25/23 15:34 Source: patient Patient Subjective Stated Complaint: pt here for increase sob, low grade fever and cough for last 3 days now, pt is on home o2 at 2 lnc, Triage Nursing Assessment: pt alert, resp easy labored at times, has congested sounding cough, skin w/d/p. oc at 4 lnc. chest diminished Physician History: Patient is 63-year-old male with significant past medical history of h ypertension COPD started having a fever shortness of breath with mucopurulent phlegm for last 3 to 4 days. Shortness of breath got worse today so he came to the emergency room. He was apparently very short of breath in the emergency room as well as his blood pressure was also running high. He also complaining of low-grade fever with chills. He denies any chest pain nausea vomiting abdominal pain or blood in the sputum or blood in the stool or urine. Timing/Duration: day(s) (3-4 days) Activities at Onset: none Severity of Dyspnea-Max: moderate Severity of Dyspnea-Current: moderate Possible Cause: frequent episodes Associated Symptoms: cough, chest pain/discomfort, fever Allergies/Adverse Reactions: No Known Drug Allergies Allergy (Verified 06/25/23 15:08) Home Medications: Fluticasone/Vilanterol [Breo Ellipta 100-25 Mcg Inhalr] 1 puff IH DAILY 03/22/23 [History] Hx Tetanus, Diphtheria Vaccination/Date Given: No Hx Influenza Vaccination/Date Given: Yes Hx Pneumococcal Vaccination/Date Given: No Immunizations Up to Date: Yes Travel Risk - International Travel Have you traveled outside of the country in past 3 weeks: No - Coronavirus Screening Are you exhibiting any of the following symptoms?: Yes Symptoms: Fever - Vaccine Status Have you recieved a Covid-19 vaccination: Yes [employer]ice: Moderna - Vaccination Dates Date of 2cond Vaccination (if applicable): 02/12/2021 - Review of Systems Constitutional: Fever, Chills Eyes: No Symptoms Ears, Nose, & Throat: No Symptoms Respiratory: Cough, Dyspnea, Dyspnea on Exertion (MOSES), Wheezing Cardiac: No Chest Pain, No Edema, No Syncope Abdominal/Gastrointestinal: No Abdominal Pain, No Nausea, No Vomiting, No Diarrhea Genitourinary Symptoms: No Dysuria Musculoskeletal: No Back Pain, No Neck Pain Skin: No Rash Neurological: No Dizziness, No Focal Weakness, No Sensory Changes Psychological: No Symptoms Endocrine: No Symptoms All Other Systems: Reviewed and Negative - Past Medical History Pertinent Past Medical History: Yes Neurological History: TIA ENT History: No Pertinent History Cardiac History: Angina, Coronary Artery Disease, High Cholesterol, Hypertension, Myocardial Infarction (IA) Respiratory History: COPD, Emphysema Endocrine Medical History: No Pertinent History Musculoskeletal History: No Pertinent History GI Medical History: No Pertinent History History: No Pertinent History Psycho-Social History: No Pertinent History Male Reproductive Disorders: No Pertinent History Other Medical History: heart cath in 2014 - Past Surgical History Past Surgical History: Yes Neuro Surgical History: No Pertinent History Cardiac: Cardiac Catheterization Respiratory: No Pertinent History Gastrointestinal: No Pertinent History Genitourinary: No Pertinent History Musculoskeletal: No Pertinent History Male Surgical History: No Pertinent History Other Surgical History: DR HERNANDEZ DID HEART CATH IN 2014 - Social History Smoking Status: Former smoker How long have you smoked: 40 years Exposure to second hand smoke: No Alcohol Use: Socially Drug Use: none Patient Lives Alone: No Significant Family History: no pertinent family hx - Nursing Vital Signs Nursing Vital Signs: Initial Vital Signs Temperature 99.2 F 06/25/23 15:09 Pulse Rate 68 06/25/23 15:09 Respiratory Rate 22 06/25/23 15:09 Blood Pressure 208/127 06/25/23 15:09 O2 Sat by Pulse Oximetry 94 L 06/25/23 15:09 Pain Scale Pain Intensity 7 - Physical Exam General Appearance: no apparent distress, alert Eye Exam: PERRL/EOMI Neck Exam: normal inspection, supple Respiratory Exam: diminished breath sounds, crackles/rales, rhonchi, wheezing Cardiovascular/Chest Exam: normal heart sounds, regular rate/rhythm Abdominal/Gastrointestinal Exam: soft, No tenderness, No distention, No mass Extremity Exam: non-tender, normal range of motion, normal inspection, no calf tenderness, no pedal edema Neurologic Exam: alert, oriented x 3, cooperative, vocational rehabilitation specialist II-XII nml as tested, sensation nml, No motor deficits Skin Exam: normal color, warm, No dry SpO2 Interpretation: normal SpO2: 97 O2 Delivery: Room Air - Course Nursing assessment & vital signs reviewed: Yes - Radiology Exams Chest X-ray Interpretation: Reviewed by me Ordered Tests: Active Orders 24 hr Category Date Time Status EKG-ER Only STAT Care 06/25/23 15:26 Active Oxygen-ED Only Nasal Cannula 3 lpm Care 06/25/23 15:26 Active CHEST 2 VIEWS (PA AND LAT) Stat Exams 06/25/23 15:46 Taken CBC W DIFF Stat Lab 06/25/23 15:30 Completed CMP Stat Lab 06/25/23 15:30 Completed CULTURE,SPUTUM Stat Lab 06/25/23 15:34 Received NT PRO BNPII Stat Lab 06/25/23 15:30 Completed TROPONIN Stat Lab 06/25/23 15:30 Completed Respiratory Therapy Assessment DAILY RT 06/25/23 15:53 Active Medication Summary Discontinued Medications Generic Name Dose Route Start Last Admin Trade Name Freq PRN Reason Stop Dose Admin Albuterol/Ipratropium 3 ml 06/25/23 15:26 06/25/23 15:48 Ipratropium/Albuterol Sulfate 3 Ml Ampul.Neb 06/25/23 15:27 3 ml STAT ONE Administration Budesonide 0.5 mg 06/25/23 15:28 06/25/23 15:49 Budesonide 0.5 Mg/2 Ml Ampul.Neb. 06/25/23 15:29 0.5 mg ONCE ONE Administration Methylprednisolone Sodium 0 mg 06/25/23 15:26 06/25/23 16:46 Succinate 125 mg/ Sterile IV 06/25/23 15:27 125 mg Water 2 ml STAT ONE Administration Sodium Chloride 1,000 mls @ 999 mls/hr 06/25/23 15:26 06/25/23 16:44 Sodium Chloride 0.9% 1000 Ml IV 06/25/23 16:26 999 mls/hr .Q1H1M STA Administration Ceftriaxone Sodium 1 gm in 100 mls @ 200 mls/hr 06/25/23 15:49 06/25/23 16:51 Rocephin 1 Gm / 100 Ml Nacl IV 06/25/23 16:18 200 ml/hr STAT ONE 200 mls/hr Administration Azithromycin 500 mg in 250 mls @ 250 mls/hr 06/25/23 15:49 Zithromax 500 Mg/ 250 Ml Nacl Premix IV 06/25/23 16:48 STAT STA Sodium Chloride Confirm 06/25/23 16:41 Sodium Chloride 0.9% 1000 Ml Administered 06/25/23 16:42 Dose 1,000 mls @ ud .ROUTE .STK-MED ONE Ceftriaxone Sodium Confirm 06/25/23 16:42 Rocephin 1 Gm / 100 Ml Nacl Administered 06/25/23 16:43 Dose 1 gm in 100 mls @ ud IV .STK-MED ONE Methylprednisolone Sodium Succinate Confirm 06/25/23 16:41 Methylprednis Sod Succ 125 Mg/2 Ml Vial Administered 06/25/23 16:42 Dose 125 mg .ROUTE .STK-MED ONE Sterile Water Confirm 06/25/23 16:41 Water For Injection,Sterile 10 Ml Vial Administered 06/25/23 16:42 Dose 10 ml IJ .STK-MED ONE Lab/Rad Data: Laboratory Result Diagrams 06/25/23 15:30 06/25/23 15:30 Laboratory Results 06/25/23 06/25/23 06/25/23 Range/Units 15:45 15:30 15:30 WBC (4.0-10.5) x10^3/uL RBC (4.1-5.6) x10^6/uL Hgb (12.5-18.0) g/dL Hct (42-50) % MCV (78-100) fL MCH (26-32) pg MCHC (32-36) g/dL RDW (11.5-14.0) % Plt Count (150-450) x10^3/uL MPV (7.5-11.0) fL Gran % (36.0-66.0) % Immature Gran % (Auto) (0.00-0.4) % Nucleat RBC Rel Count (0.00-0.1) % Eos # (Auto) (0-0.5) x10^3/uL Immature Gran # (Auto) (0.00-0.03) x10^3u/L Absolute Lymphs (auto) (1.0-4.6) x10^3/uL Absolute Monos (auto) (0.0-1.3) x10^3/uL Absolute Nucleated RBC (0.00-0.01) x10^3u/L Lymphocytes % (24.0-44.0) % Monocytes % (0.0-12.0) % Eosinophils % (0.00-5.0) % Basophils % (0.0-0.4) % Absolute Granulocytes (1.4-6.9) x10^3/uL Basophils # (0-0.4) x10^3/uL Sodium 131 L (137-145) mmol/L Potassium 4.2 (3.5-5.1) mmol/L Chloride 97 L (98-107) mmol/L Carbon Dioxide 26 (22-30) mmol/L Anion Gap 12.6 (5-15) MEQ/L BUN 15 (9-20) mg/dL Creatinine 0.72 (0.66-1.25) mg/dL Estimated GFR 103.3 ML/MIN Glucose 92 (74-106) mg/dL Calcium 9.7 (8.4-10.2) mg/dL Total Bilirubin 0.70 (0.2-1.3) mg/dL AST 30 (17-59) U/L ALT 18 (0-50) U/L Alkaline Phosphatase 62 (38-126) U/L Troponin I < 0.012 (0.000-0.034) ng/mL NT-Pro-B Natriuret Pep 2600 (<300) pg/mL Serum Total Protein 8.1 (6.3-8.2) g/dL Albumin 4.7 (3.5-5.0) g/dL Influenza Type A Ag NEGATIVE (NEGATIVE) Influenza Type B Ag NEGATIVE (NEGATIVE) RSV (PCR) NEGATIVE (NEGATIVE) SARS-CoV-2 (PCR) NEGATIVE (NEGATIVE) Slides for Path Review 06/25/23 Range/Units 15:30 WBC 10.1 (4.0-10.5) x10^3/uL RBC 4.58 (4.1-5.6) x10^6/uL Hgb 15.2 (12.5-18.0) g/dL Hct 44.6 (42-50) % MCV 97.4 (78-100) fL MCH 33.2 H (26-32) pg MCHC 34.1 (32-36) g/dL RDW 12.0 (11.5-14.0) % Plt Count 263 (150-450) x10^3/uL MPV 9.4 (7.5-11.0) fL Gran % 75.9 H (36.0-66.0) % Immature Gran % (Auto) 0.2 (0.00-0.4) % Nucleat RBC Rel Count 0.0 (0.00-0.1) % Eos # (Auto) 0.02 (0-0.5) x10^3/uL Immature Gran # (Auto) 0.02 (0.00-0.03) x10^3u/L Absolute Lymphs (auto) 0.82 L (1.0-4.6) x10^3/uL Absolute Monos (auto) 1.55 H (0.0-1.3) x10^3/uL Absolute Nucleated RBC 0.00 (0.00-0.01) x10^3u/L Lymphocytes % 8.1 L (24.0-44.0) % Monocytes % 15.4 H (0.0-12.0) % Eosinophils % 0.2 (0.00-5.0) % Basophils % 0.2 (0.0-0.4) % Absolute Granulocytes 7.65 H (1.4-6.9) x10^3/uL Basophils # 0.02 (0-0.4) x10^3/uL Sodium (137-145) mmol/L Potassium (3.5-5.1) mmol/L Chloride (98-107) mmol/L Carbon Dioxide (22-30) mmol/L Anion Gap (5-15) MEQ/L BUN (9-20) mg/dL Creatinine (0.66-1.25) mg/dL Estimated GFR ML/MIN Glucose (74-106) mg/dL Calcium (8.4-10.2) mg/dL Total Bilirubin (0.2-1.3) mg/dL AST (17-59) U/L ALT (0-50) U/L Alkaline Phosphatase (38-126) U/L Troponin I (0.000-0.034) ng/mL NT-Pro-B Natriuret Pep (<300) pg/mL Serum Total Protein (6.3-8.2) g/dL Albumin (3.5-5.0) g/dL Influenza Type A Ag (NEGATIVE) Influenza Type B Ag (NEGATIVE) RSV (PCR) (NEGATIVE) SARS-CoV-2 (PCR) (NEGATIVE) Slides for Path Review YES - Progress Progress: improved Air Movement: fair Blood Culture(s) Obtained: No Antibiotics given: Yes Counseled pt/family regarding: lab results, diagnosis, need for follow-up, rad results Medical Desision Making - Diagnostic Testing Diagnostic test were ordered, analyzed, and reviewed by me: Yes Radiological Interpretation: Reviewed by me - Risk of complications Low Risk: Low risk of morbidity from additional dx testing or treatment - Departure Departure Disposition: Home Clinical Impression: COPD exacerbation, Chronic bronchitis with acute exacerbation, Uncontrolled hypertension Condition: Stable Critical Care Time: No Referrals: DOCTOR,NO FAMILY [NON-STAFF PHY W/O PRIVILEGES] - Follow up/PCP as directed Instructions: Chronic Obstructive Pulmonary Disease, Exacerbation of COPD (DC) Additional Instructions: Discharge/Care Plan NADIA VAUGHAN was seen on 06/25/23 in the Emergency Room. The patient was counseled regarding Diagnosis,Lab results, Imaging studies, need for follow up and when to return to the Emergency Room. Prescriptions given: Discharge Note I have spoken with the patient and/or caregivers. I have explained the patient's condition, diagnosis and treatment plan based on the information available to me at this time. I have answered the patient's and/or caregiver's questions and addressed any concerns. The patient and/or caregivers have as good understanding of the patient's diagnosis, condition and treatment plan as can be expected at this point. The vital signs have been stable. The patient's condition is stable and appropriate for discharge from the emergency department. The patient will pursue further outpatient evaluation with the primary care physician or other designated or consulting physician as outlined in the discharge instructions. The patient and/or caregivers are agreeable to this plan of care and follow-up instructions have been explained in detail. The patient and/or caregivers have received these instruction. The patient/and or caregivers are aware that any significant change in condition or worsening of symptoms should prompt an immediate return to this or the closest emergency department or call 911. NADIA VAUGHAN was seen on 06/25/23 n the Emergency Room. At that time you were treated for an emergent condition, during your visit Laboratory, Rad iology and/or other procedures may have been ordered. It is very important that you follow-up with your Primary Care Physician NO FAMILY DOCTOR within the next 24-48 hours to review your Emergency Room visit and the final results of testing that was ordered. Some test results such as Urine Cultures, Blood Cultures, and other cultures if ordered will not be finalized for 24-48 hours. If you do not have a Primary Care Provider please call the medical records department at [phone] to obtain a copy of your results or you may sign into our patient portal to obtain these results by visiting us @ [email or web address] and completing the following steps: 1. Click on the Patient Portal link 2. Click the Patient Self Enrollment Link to complete the enrollment form and entering your 3. Once the enrollment form is completed you will receive an email with a temporary ID and password at the email address you provided. 4. Next choose a user name and password. Your user name must be at least 4 kamila racters long and your password must be at least 4 characters long. 5. Choose a security question from the list and provide your answer to the question. If you already have signed into the Health Portal you may access your Health Care Information 12/12 by the following steps: 1. Login to our website @ [email or web address] 2. Enter your original user name and password. FAQS The [facility] Health Portal is an online tool that contains your Lab Results, Radiology Reports, Visit History, Discharge Instructions and Health Summary Lab and Radiology Results will not be available for 72 hours on the portal. The Portal is a secure site, passwords are encryted and URLs are re-written so they cannot be copied and pasted. You and authorized family members are the only ones who can access your Portal. Also there is a timeout feature that protects your information if you leave the Portal page open. If you have technical difficulty please use the Contact Us link on the page this will allow you to submit any questions you have regarding the Portal or you may contact the Medical Record Department at [phone]. Prescriptions: Levofloxacin [Levaquin 500 MG Tablet] 500 mg PO QAM #10 tablet Methylprednisolone Packet [Medrol Dosepack] 4 mg PO UD #21 packet
[2023-06-25] MEDS ORDERED: Zithromax 500 MG/ 250 ML NaCl Premix 500 MG/250 ML IVPB IV STA (15:49)
[2023-06-25] MEDS ORDERED: ROCEPHIN 1 GM / 100 ML NaCl 1 GM/100 ML IVPB IV ONE ×2 (15:49→16:42)
[2023-06-25 15:51] LABS: Absolute Neutrophil Ct (ANC) 7.65 x10^3/uL (1.4-6.9); BASOPHIL % 0.2 % (0.0-0.4); Basophil (Absolute #) 0.02 x10^3/uL (0-0.4); Eosinophil % 0.2 % (0.00-5.0); Eosinophil (Absolute #) 0.02 x10^3/uL (0-0.5); Hematocrit 44.6 % (42-50); Hemoglobin 15.2 g/dL (12.5-18.0); IMMATURE GRAN # 0.02 x10^3u/L (0.00-0.03); IMMATURE GRAN % 0.2 % (0.00-0.4); Lymphocyte (Absolute #) 0.82 x10^3/uL (1.0-4.6); Lymphocytes % 8.1 % (24.0-44.0); Mean Cell Volume 97.4 fL (78-100); Mean Corpuscular Hemoglobin 33.2 pg (26-32); Mean Corpuscular Hgb Concent. 34.1 g/dL (32-36); Mean Platelet Volume 9.4 fL (7.5-11.0); Monocyte (Absolute #) 1.55 x10^3/uL (0.0-1.3); Monocytes % 15.4 % (0.0-12.0); Neutrophil % 75.9 % (36.0-66.0); Platelet Count 263 x10^3/uL (150-450); Red Blood Count 4.58 x10^6/uL (4.1-5.6); White Blood Count 10.1 x10^3/uL (4.0-10.5)
[2023-06-25 16:19] LABS: ALBUMIN 4.7 g/dL (3.5-5.0); ALKALINE PHOSPHATASE 62 U/L (38-126); ANION GAP 12.6 MEQ/L (5-15); BLOOD UREA NITROGEN 15 mg/dL (9-20); CHLORIDE 97 mmol/L (98-107); Calcium 9.7 mg/dL (8.4-10.2); Carbon Dioxide 26 mmol/L (22-30); Creatinine 1 0.72 mg/dL (0.66-1.25); EST GLOMERULAR FILTRATION RATE 103.3 ML/MIN; Glucose 92 mg/dL (74-106); SGOT/AST 30 U/L (17-59); SGPT/ALT 18 U/L (0-50); SODIUM 131 mmol/L (137-145); TROPONIN < 0.012 ng/mL (0.000-0.034); Total Protein 8.1 g/dL (6.3-8.2)
[2023-06-25 16:20] LABS: Potassium 4.2 mmol/L (3.5-5.1)
[2023-06-25 16:29] LABS: INFLUENZA A NEGATIVE (NEGATIVE); INFLUENZA B NEGATIVE (NEGATIVE); RESPIRATORY SYNCTIAL VIRUS NEGATIVE (NEGATIVE); SARS-CoV-2 Xpert Express NEGATIVE (NEGATIVE)
[2023-06-25] MEDS ORDERED: Sodium Chloride 0.9% 1000 ML 1,000 ML ONE (16:41)
[2023-06-25] MEDS ORDERED: solu-MEDROL ONE (16:41)
[2023-06-25] MEDS ORDERED: Sterile H2O 10 ml IJ ONE (16:41)
[2023-06-25 16:43] LABS: Slide Review 1 YES
[2023-06-25] MEDS ORDERED: Zithromax 500 MG/ 250 ML NaCl Premix 500 MG/250 ML IVPB IV ONE (17:11)
[2023-06-25 17:20] VITALS: BP 196/125; PULSE 77; RESP 24; O2SAT 96
--- NOTE | 2023-06-25 18:48 | XRAY ---
Indication: Short of breath. Cough. Comparison: March 05, 2023 PA/lateral chest again demonstrates COPD without focal infiltrate, consolidation, or large effusion. Heart and mediastinum structures within normal limits. Bony thorax intact again with mild degenerative changes. Impression: Continued nonacute chest with chronic features.
== END 2023-06-25 18:38 | disposition home or self-care (01) ==
LOC: ED 15:07
DX: J44.1 Chronic obstructive pulmonary disease with (acute) exacerbation (principal); I10 Essential (primary) hypertension; R06.02 Shortness of breath; R50.9 Fever, unspecified; E78.5 Hyperlipidemia, unspecified; Z79.899 Other long term (current) drug therapy
CPT/HCPCS: 0241U; 36000; 36415; 71046; 80053; 83880; 84484; 85025; 87070; 87077; 93005; 94640; 96374; 99284; 87186; J0456; J0696; J2930; A9270-GY